=== PATIENT | female | born 1975 | race Caucasian/White ===

== ENCOUNTER → 2016-03-12 | Outpatient (CLI) | payer OTHER ==
[~2016-03-12] MED LIST: ACET-703 PO; CEPH-460 PO; CLEO300C2 PO; FERRTAB2 PO; IBUP-232 PO; IBUP800T23 PO; MACR100C2 PO; NAPR500T PO; OXYC1TAB63 PO; PERI8.6T PO; PREN1CAP20; SIME80CH PO; ZITHTAB PO
== END ==
LOC: HPND 09:54
PROVIDERS: ATTEND Obstetrics & Gynecology Obstetrics
DX: O09.522 Supervision of elderly multigravida, second trimester (principal); O35.1XX0 Maternal care for (suspected) chromosomal abnormality in fetus, not applicable or unspecified; O09.892 Supervision of other high risk pregnancies, second trimester; O09.212 Supervision of pregnancy with history of pre-term labor, second trimester; O99.332 Smoking (tobacco) complicating pregnancy, second trimester; Z3A.31 31 weeks gestation of pregnancy
CPT/HCPCS: 76816

== ENCOUNTER 2016-03-18 09:31 | Emergency (ER) | payer OTHER ==
[~2016-03-18] VITALS: Ht 185.4 cm; Wt 76.0 kg
[~2016-03-18 09:31] MED LIST changes: -ACET-703 PO; -CEPH-460 PO; -CLEO300C2 PO; -FERRTAB2 PO; -IBUP-232 PO; -IBUP800T23 PO; -MACR100C2 PO; -NAPR500T PO; -OXYC1TAB63 PO; -PERI8.6T PO; -SIME80CH PO; -ZITHTAB PO
[2016-03-18 09:32] VITALS: BP 119/66; PULSE 74; RESP 18; TEMP 98.1; O2SAT 97
[2016-03-18] MEDS ORDERED: ONDANSETRON ODT 4 MG TAB PO ONE (10:45)
--- NOTE | 2016-03-18 10:46 | PD ---
HPI Chief Complaint: Cold / Flu Symptoms Time Seen by Provider: 10:37 Travel History International Travel<30 days: No Contact w/Intl Traveler<30days: No Traveled to known affect area: No History of Present Illness HPI 40-year-old female at 31 weeks 6 days gestational age here with complaint of flulike symptoms. Patient states that she has had 3 days of cough, nasal congestion, subjective fevers and chills. Her highest measured temperature was 101.2. Patient has been taking Tylenol with improvement of her symptoms. Some nausea, vomiting. Incidentally her daughter was ill with similar symptoms for 2 days prior to patient. Neither has been tested for influenza. Patient also states that she recently had vaginal intercourse for the first time since becoming . Patient had no pain before or after intercourse, notes after intercourse she did have some bleeding. Initially this was heavy, burgundy in color with occasional clot. Over the course the last several days this has decreased and is now only scant amount of spotting when she wipes after using the restroom. She called her [facility]IST who instructed her to come to the emergency department for both symptoms. PFSH Past Medical History Autoimmune Disease: Yes (LYME DISEASE) Diminished Hearing: No Migraines: Yes Tetanus Vaccination: > 5 Years ?: LMP: 16 : 7 Para: 3 Miscarriage: 3 Past Surgical History Oral Surgery: Yes (WISDOM TEETH REMOVAL) Social History Alcohol Use: No Tobacco Use: Yes (smokes a half pack of cigarettes per day) Substance Use: No Allergies-Medications (Allergen,Severity, Reaction): Coded Allergies: No Known Allergies (Unverified , 03/18/16) Reported Meds & Prescriptions Reported Meds & Active Scripts Active Reported Prenate Mini 18-0.6-0.4-350 mg ( W/O Vit A W/ Fe Carbo) 1 Cap Cap Review of Systems Except as stated in HPI: all other systems reviewed are Neg Physical Exam Narrative GENERAL: Well-appearing female in no acute distress SKIN: Warm and dry. HEAD: Normocephalic. EYES: No scleral icterus. No injection or drainage. ENT: No nasal bleeding or discharge. Mucous membranes pink and moist. Posterior pharynx is clear NECK: Supple CARDIOVASCULAR: Regular rate and rhythm. RESPIRATORY: No accessory muscle use. Clear to auscultation. Breath sounds equal bilaterally. GASTROINTESTINAL: Abdomen soft, non-tender, nondistended. Fundus palpable above the umbilicus MUSCULOSKELETAL: Normal gait NEUROLOGICAL: Awake and alert. Normal speech. PSYCHIATRIC: Appropriate mood and affect; insight and judgment normal. Data Data Last Documented VS Vital Signs Date Time Temp Pulse Resp B/P Pulse Ox O2 Delivery O2 Flow Rate FiO2 03/18/16 09:32 98.1 74 18 119/66 97 Room Air Orders Urinalysis - C+S If Indicated (03/18/16 10:39) Influenzae A/B Antigen (03/18/16 10:39) Ondansetron Odt (Zofran Odt) (03/18/16 10:45) Urine Culture (03/18/16 10:50) Labs Laboratory Tests Test 03/18/16 10:50 Urine Color YELLOW Urine Turbidity CLOUDY Urine pH 6.5 Urine Specific [place] 1.017 Urine Protein TRACE mg/dL Urine Glucose (UA) NEG mg/dL Urine Ketones TRACE mg/dL Urine Occult Blood MOD Urine Nitrite NEG Urine Bilirubin NEG Urine Urobilinogen LESS THAN 2.0 MG/DL Urine Leukocyte Esterase MOD Urine RBC 7 /hpf Urine WBC 11 /hpf Urine Squamous Epithelial 5 /hpf Cells Urine Amorphous Sediment RARE Urine Bacteria FEW /hpf Urine Mucus FEW /lpf Microscopic Urinalysis Comment CULTURE INDICATED MDM Medical Decision Making Medical Screen Exam Complete: Yes Emergency Medical Condition: Yes Medical Record Reviewed: Yes Differential Diagnosis 40-year-old female at 31 weeks 6 days gestational age here with complaint of flulike symptoms, spotting after intercourse. Differential includes viral syndrome, influenza, sinusitis, pneumonia, cervical irritation/trauma from intercourse, and less likely a term labor, abruption, previa given lack of associated pain or heavy persistent bleeding. Narrative Course Influenza was negative. Urinalysis showed leukocyte esterase with white cells and few bacteria. Will await culture will treat with Macrobid. Patient was cleared from an ED perspective and will be sent up to the OB ED for her spotting. Diagnosis Primary Impression: Upper respiratory infection Qualified Code: J06.9 - Viral upper respiratory tract infection Additional Impression: Urinary tract infection affecting Referrals: Primary Care Physician as needed Patient Instructions: General Instructions, Upper Respiratory Infection (ED), Urinary Tract Infection in (ED) Additional Instructions: Antibiotics for urinary tract infection as prescribed. Med/Other Pt SpecificInfo: Prescription(s) given Scripts Nitrofurantoin Monohydrate Macrocrystals (Macrobid)100 Mg [id number] Mg PO BID 7 Days Ref 0 Prov:Melany Miramontes MD 03/18/16 Disposition: 01 DISCHARGE HOME Condition: Stable Melany Miramontes MD Mar 18, 2016 10:46
[2016-03-18 11:15] LABS: BACTERIA, URINE FEW /hpf; BLOOD, URINE MOD (NEG); GLUCOSE,URINE NEG (NEG); KETONE, URINE TRACE mg/dL (NEG); MUCUS URINE FEW /lpf (OCC); NITRITE,URINE NEG (NEG); PH, URINE 6.5 (5.0-8.5); SQUAMOUS EPITHELIAL CELL URINE 5 /hpf (0-5); URINE COLOR YELLOW (YELLW/STRAW)
[2016-03-18 11:17] LABS: COMMENT (UR) CULTURE INDICATED; CULTURE IF INDICATED CULTURE INDICATED
[2016-03-18] MEDS ORDERED: MACR100C2 PO (11:23)
[2016-04-15] MEDS ORDERED: CEPH-460 PO (09:55)
[2016-05-06] MEDS ORDERED: FERRTAB2 PO (10:38)
[2016-05-13] MEDS ORDERED: IBUP800T23 PO (11:01)
== END 2016-03-18 11:35 | disposition home or self-care (01) ==
LOC: NEPD 09:31
DX: O26.893 Other specified pregnancy related conditions, third trimester (principal); J06.9 Acute upper respiratory infection, unspecified; B97.89 Other viral agents as the cause of diseases classified elsewhere; O23.43 Unspecified infection of urinary tract in pregnancy, third trimester; O26.853 Spotting complicating pregnancy, third trimester; R05 Cough; R50.9 Fever, unspecified; R11.2 Nausea with vomiting, unspecified; F17.200 Nicotine dependence, unspecified, uncomplicated; Z86.2 Personal history of diseases of the blood and blood-forming organs and certain disorders involving the immune mechanism; Z3A.31 31 weeks gestation of pregnancy
CPT/HCPCS: 81001; 87086; 87804; 99284

== ENCOUNTER 2016-03-23 11:20 | Emergency (ER) | payer OTHER ==
[~2016-03-23 11:20] MED LIST changes: +MACR100C2 PO
[2016-03-23 11:23] VITALS: BP 111/57; PULSE 80; RESP 24; TEMP 97.8; O2SAT 97
[2016-03-23 11:58] VITALS: TEMP 98.3
[2016-03-23 11:59] VITALS: BP 110/69; PULSE 78; RESP 18
[2016-03-23] MEDS ORDERED: guaiFENesin/DEXTROMETHORPHAN 200 MG/20 MG/10 ML CUP PO ONE (12:00)
--- NOTE | 2016-03-23 12:04 | PD ---
HPI Date Seen: Mar 23, 2016 Time Seen: 11:45 (Tristen Pope MD R2) Travel History International Travel<30 Days: No Contact w/Intl Traveler<30Days: No (Tristen Pope MD R2) History of Present Illness HPI Ms. Esteban is a 40 yo pt of [facility] at 32 4/7 weeks (JAZMIN 05/14) who presents with right-sided chest pain and cough. Patient states that these symptoms have worsened since she was last seen in [place] ED 03/18 (Ms. Esteban was seen by Dr. Miramontes; influenza negative. UA with leuk esterase, WBC, few bacteria; prescribed Macrobid). Patient states that chest pain occurs with coughing; last night she had particularly large cough and since then has had worse right-sided chest pain. Patient states that she felt a popping sensation with this coughing. No exertional component of chest pain; no shortness of breath. No fever/chills. Patient states that she has been taking Mucinex / Tylenol for suspected URI and chest pain. No calf swelling. Patient denies dysuria; she is still taking Macrobid. No vomiting; had nausea this morning. Patient also reports that she is certain for premature rupture of membrane; however, she frequently urinates on herself. No reported US abnormalities; gets q4 weeks since AMA. Review of records: A+ blood, no infectious diseases Para: 3 : 7 (Tristen Pope MD R2) History Past Medical History Narrative Medical Advanced maternal age Tobacco abuse (Tristen Pope MD R2) Obstetric History Obstetric History 3 vaginal deliveries; 1 child at ~34weeks, others full term No reported prior complications (Tristen Pope MD R2) Past Surgical History Narrative Surgical Unspecified knee surgery [place] teeth removal (Tristen Pope MD R2) Family History Family History: Negative (Tristen Pope MD R2) Social History Narrative Social History 5-6 cigarettes/day Not sexually active recently; not involved with prior partner Alcohol Use: No Tobacco Use: Yes Substance Abuse: No (Tristen Pope MD R2) Allergies-Medications (Allergen,Severity, Reaction): Coded Allergies: No Known Allergies (Unverified , 03/23/16) Home Meds Active Scripts Acetaminophen (Tylenol Extra Strength)500 Mg Qcg135 Mg PO Q6HR PRN (PAIN) #20 TAB Ref 0 Prov:Tristen Pope MD R2 03/23/16 Azithromycin (Zithromax Z-Ephraim)250 Mg [id number] Mg PO DIRECTED #1 DSPK Ref 0 500 MG (2 tabs) day 1, then 1 tab days 2-5. Prov:Tristen Pope MD R2 03/23/16 Nitrofurantoin Monohydrate Macrocrystals (Macrobid)100 Mg [id number] Mg PO BID 7 Days Ref 0 Prov:Melany Miramontes MD 03/18/16 Reported Medications W/O Vit A W/ Fe Carbo (Prenate Mini 18-0.6-0.4-350 mg)1 Cap Cap 01/14/16 Review of Systems General / Constitutional: No: Fever Eyes: No: Blurred Vision Cardiovascular: Chest Pain or Discomfort Respiratory: Cough, No: Short of Breath Gastrointestinal: No: Nausea, Abdominal Pain Genitourinary: No: Dysuria Skin: No Rash Psychiatric: No: Anxiety, Depression (Tristen Pope MD R2) Physical Exam Narrative Vital signs: BP 110/69 HR 78 RR 18 T 98.3 GENERAL: Well-nourished, well-developed patient. SKIN: Warm and dry. HEAD: Normocephalic and atraumatic. EYES: No scleral icterus. No injection or drainage. ENT: No nasal drainage noted. Mucous membranes pink. CARDIOVASCULAR: Regular rate and rhythm without murmurs. Normal peripheral perfusion Chest Wall: Pain to palpation of R chest wall at ribs ~5-7 near costochondral junction RESPIRATORY: Normal rate. Congestion to auscultation of R lung field inferiorly ABDOMEN/GI: Abdomen soft, non-tender, bowel sounds normal, no rebound, no guarding Gravid. EXTREMITIES: No calf pain or lower extremity edema NEUROLOGICAL: Awake and alert. Motor and sensory function grossly within normal limits. GENITOURINARY: Uterine Contractions: None FHT's: Category: 1 Baseline: 145 Reactive: Y Variability: Moderate Decels: None (Tristen Pope MD R2) Data Data Orders Vital Signs (Adult) .ON ADMISSION (03/23/16 11:43) ^ Labor Status (03/23/16 11:43) Urinalysis - C+S If Indicated (03/23/16 11:43) ^ Non Stress Test (03/23/16 11:43) ^ Hydration (03/23/16 11:43) Complete Blood Count With Diff (03/23/16 11:43) Basic Metabolic Panel (Bmp) (03/23/16 11:43) Influenzae A/B Antigen (03/23/16 11:43) Chest, Pa & Lat (03/23/16 ) Guaifen-Dm 200-20 Mg/10 Ml Liq (Robituss (03/23/16 12:00) (Tristen Pope MD R2) MDM Medical Record Reviewed: Yes Interpretation(s) Last Impressions Chest X-Ray 03/23/16 0000 Signed Impressions: Service Date/Time: Wednesday, March 23, 2016 12:29 - CONCLUSION: No acute pulmonary infiltrates. Indio Donis MD Narrative Course / MDM 40 yo Assessment: -32 4/7 weeks, advanced maternal age -EFM reassuring -Cat 1 rhythm -Chest pain to palpation and with coughing; suspect MSK and/or pleuritic -URI symptoms; afebrile -Recent UTI; treated with Macrobid Plan: Monitor EFM Will assess for pneumonia/influenza -Influenza negative -CXR negative -CBC- WBC 11.2; Neut 84.1% Will check for UTI -UA reassuring Will check for ROM -PAMG-[address] Lazo Plan Suspect Viral infection vs atypical pneumonia -Will discharge patient home with follow-up with [facility] OPERATOR -Will empirically give Azithromycin for possible atypical pneumonia -Will advise Tylenol ES for pain control -Honey advised for cough control -Patient to return to [facility] OPER[facility] or OB ED if fever or worsening symptoms (Tristen Pope MD R2) Diagnosis Diagnosis: Primary Impression: Upper respiratory infection Additional Impressions: Lower respiratory infection Cough Chest wall muscle strain Disposition: 01 DISCHARGE HOME Condition: Stable Scripts Acetaminophen (Tylenol Extra Strength)500 Mg Tab127 Mg PO Q6HR PRN (PAIN) #20 TAB Ref 0 Prov:Tristen Pope MD R2 03/23/16 Azithromycin (Zithromax Z-Ephraim)250 Mg [id number] Mg PO DIRECTED #1 DSPK Ref 0 500 MG (2 tabs) day 1, then 1 tab days 2-5. Prov:Tristen Pope MD R2 03/23/16 Referrals: [facility] Patient Instructions: General Instructions, Upper Respiratory Infection (DC) Attestation Patient seen and examined with the resident under direct supervision and I agree with the assessment and plan. (Joe Lazo MD) Tristen Pope MD R2 Mar 23, 2016 12:04 Joe Lazo MD Mar 24, 2016 02:14
[2016-03-23 12:40] VITALS: BP 128/64; PULSE 69
[2016-03-23 12:45] VITALS: RESP 18
--- NOTE | 2016-03-23 12:57 | RADRPT ---
EXAM DATE/TIME: 03/23/2016 12:29 [facility] COMPARISON: No previous studies available for comparison. INDICATIONS : Bronchitis. Right side chest pain and cough. MEDICAL HISTORY : . SURGICAL HISTORY : None. ENCOUNTER: Initial ACUITY: 2 days PAIN SCORE: 9/10 LOCATION: Right chest FINDINGS: PA and lateral views of the chest demonstrate the lungs to be symmetrically aerated without evidence of mass, infiltrate or effusion. The cardiomediastinal contours are unremarkable. Osseous structure s are intact. CONCLUSION: No acute pulmonary infiltrates. Indio Donis MD on March 23, 2016 at 12:55 Board Certified Radiologist. This report was verified electronically.
[2016-03-23 13:02] LABS: AUTOMATED NEUTROPHIL # 9.9 TH/MM3 (1.8-7.7); BASOPHIL # 0.1 TH/MM3 (0-0.2); BASOPHIL % 0.5 % (0.0-2.0); EOSINOPHIL # 0.1 TH/MM3 (0-0.4); EOSINOPHIL % 1.1 % (0.0-4.0); HEMATOCRIT 31.3 % (35.0-46.0); HEMO FLAGS DIFF FINAL; LYMPH % 9.5 % (9.0-44.0); LYMPHOCYTE # 1.1 TH/MM3 (1.0-4.8); MEAN CORPUSCULAR HGB CONC 34.5 % (32.0-36.0); MONO % 4.8 % (0.0-8.0); NEUT % 84.1 % (16.0-70.0); PLATELET COUNT 281 TH/MM3 (150-450); RED BLOOD COUNT 3.37 MIL/MM3 (4.00-5.30); RED CELL DISTRIBUTION WIDTH 12.9 % (11.6-17.2); WHITE BLOOD COUNT 11.8 TH/MM3 (4.0-11.0)
[2016-03-23 13:08] LABS: BACTERIA, URINE RARE /hpf; BLOOD, URINE NEG (NEG); GLUCOSE,URINE NEG (NEG); KETONE, URINE 150 mg/dL (NEG); MUCUS URINE FEW /lpf (OCC); NITRITE,URINE NEG (NEG); RENAL EPITHELIAL CELLS <1 /hpf; SQUAMOUS EPITHELIAL CELL URINE <1 /hpf (0-5); URINE COLOR YELLOW (YELLW/STRAW)
[2016-03-23 13:09] LABS: COMMENT (UR) CULT NOT INDICATED; CULTURE IF INDICATED CULT NOT INDICATED
[2016-03-23 13:16] LABS: BICARBONATE 25.2 MEQ/L (21.0-32.0); POTASSIUM 3.5 MEQ/L (3.5-5.1)
[2016-03-23] MEDS ORDERED: ACET-703 PO (13:59)
[2016-03-23] MEDS ORDERED: ZITHTAB PO (13:59)
[2016-04-15] MEDS ORDERED: CEPH-460 PO (09:55)
[2016-05-06] MEDS ORDERED: FERRTAB2 PO (10:38)
[2016-05-13] MEDS ORDERED: IBUP800T23 PO (11:01)
== END 2016-03-23 16:05 | disposition home or self-care (01) ==
LOC: HOBED 11:20
DX: O26.893 Other specified pregnancy related conditions, third trimester (principal); O09.513 Supervision of elderly primigravida, third trimester; J06.9 Acute upper respiratory infection, unspecified; J22 Unspecified acute lower respiratory infection; R07.9 Chest pain, unspecified; Z3A.32 32 weeks gestation of pregnancy
CPT/HCPCS: 36415; 59025; 71020; 80048; 81001; 84112; 85025; 87804

== ENCOUNTER → 2016-04-09 | Outpatient (CLI) | payer OTHER ==
[~2016-04-09] MED LIST changes: +ACET-703 PO; +CEPH-460 PO; +CLEO300C2 PO; +FERRTAB2 PO; +IBUP-232 PO; +IBUP800T23 PO; +NAPR500T PO; +OXYC1TAB63 PO; +PERI8.6T PO; +SIME80CH PO; +ZITHTAB PO
== END ==
LOC: HPND 09:22
PROVIDERS: ATTEND Obstetrics & Gynecology
DX: O09.523 Supervision of elderly multigravida, third trimester (principal); O99.333 Smoking (tobacco) complicating pregnancy, third trimester; O09.33 Supervision of pregnancy with insufficient antenatal care, third trimester; O09.892 Supervision of other high risk pregnancies, second trimester; O09.213 Supervision of pregnancy with history of pre-term labor, third trimester; O40.3XX0 Polyhydramnios, third trimester, not applicable or unspecified; O35.1XX0 Maternal care for (suspected) chromosomal abnormality in fetus, not applicable or unspecified; Z3A.35 35 weeks gestation of pregnancy
CPT/HCPCS: 76816

== ENCOUNTER 2016-04-18 20:03 | Inpatient (IN) | payer OTHER ==
[~2016-04-18] VITALS: Ht 185.4 cm; Wt 80.0 kg
[~2016-04-18 20:03] MED LIST changes: -CLEO300C2 PO; -FERRTAB2 PO; -IBUP-232 PO; -IBUP800T23 PO; -MACR100C2 PO; -NAPR500T PO; -OXYC1TAB63 PO; -PERI8.6T PO; -SIME80CH PO; -ZITHTAB PO
[2016-04-18 20:04] VITALS: BP 146/83; PULSE 88; RESP 16; TEMP 97.8; O2SAT 98
--- NOTE | 2016-04-18 21:57 | PD ---
HPI . left foot infection for 2 weeks/ worsening Chief Complaint: Skin Problem Time Seen by Provider: 21:57 Travel History International Travel<30 days: No Contact w/Intl Traveler<30days: No Traveled to known affect area: No History of Present Illness HPI 40-year-old female with no significant past medical history who was 36 weeks and 2 days here with complaints of left foot cellulitis that started 2 weeks ago. Apparently patient developed a cellulitis after a dog leash cut into her foot. She has since seen her WARD MAID who recently prescribed Keflex this past Thursday. Since that she has been taking Keflex for 4 days and has not noticed any improvement and actually thinks the area is worsening and spreading. She called the ob department and was told to come back to the emergency department. Patient admits to pain in the area of the anterior foot radiating into the ankle. She rates the pain as 8 out of 10. At the time of examination patient denies any fever, chills, chest pain, shortness of breath, abdominal pain, or contractions. She does admit to smoking about 4 cigarettes per day. She is uncertain of her tetanus status. She does not want any medications for pain. PFSH Past Medical History Autoimmune Disease: Yes (LYME DISEASE) Diminished Hearing: No Migraines: Yes Tetanus Vaccination: Unknown Influenza Vaccination: No ?: : 7 Para: 3 Miscarriage: 3 Past Surgical History Oral Surgery: Yes (WISDOM TEETH REMOVAL) Social History Alcohol Use: No Tobacco Use: Yes (4-5 CIG PER DAY) Substance Use: No Allergies-Medications (Allergen,Severity, Reaction): Coded Allergies: No Known Allergies (Unverified , 04/18/16) Reported Meds & Prescriptions Reported Meds & Active Scripts Active Keflex (Cephalexin) 500 Mg Cap 500 Mg PO Q12H Tylenol Extra Strength (Acetaminophen) 500 Mg Tab 500 Mg PO Q6HR PRN Reported Prenate Mini 18-0.6-0.4-350 mg ( W/O Vit A W/ Fe Carbo) 1 Cap Cap Review of Systems General / Constitutional: No: Fever Eyes: No: Visual changes HENT: No: Headaches, Congestion Cardiovascular: No: Chest Pain or Discomfort, Palpitations Respiratory: No: Cough, Shortness of Breath Gastrointestinal: No: Abdominal Pain Genitourinary: No: Dysuria Musculoskeletal: No: Pain Skin: Positive Other (left foot swelling/cellulitis ), No Rash Neurologic: No: Weakness Psychiatric: No: Depression Endocrine: No: Polydipsia Hematologic/Lymphatic: No: Easy Bruising Physical Exam Narrative GENERAL: AAO x 3, no acute distress, Well-nourished, well-developed patient. SKIN: Warm and dry. No visible rashes or bruising. Left foot + erythema and pedal edema, on the anterior foot proximal to toes extending distal to ankle, warm to touch HEAD: Normocephalic and atraumatic. EYES: No scleral icterus. No injection or drainage. ENT: No nasal drainage noted. Mucous membranes pink. Airway patent. NECK: Supple, trachea midline. No JVD. CARDIOVASCULAR: Regular rate and rhythm without murmurs, gallops, or rubs. RESPIRATORY: Breath sounds equal bilaterally. No accessory muscle use. No rhonchi or rales. GASTROINTESTINAL: Abdomen soft, non-tender, nondistended. EXTREMITIES: No cyanosis or edema. Neurovascularly intact. Sensation is normal. Strength is normal bilaterally in the lower extremities. BACK: Nontender without obvious deformity. No CVA tenderness. PSYCH: AAO x 3, normal affect. Data Data Last Documented VS Vital Signs Date Time Temp Pulse Resp B/P Pulse Ox O2 Delivery O2 Flow Rate FiO2 04/18/16 22:00 75 18 135/76 98 Room Air 04/18/16 20:04 97.8 Orders Basic Metabolic Panel (Bmp) (04/18/16 22:03) Complete Blood Count With Diff (04/18/16 22:03) Lactic Acid Sepsis Protocol (04/18/16 22:03) Blood Culture (04/18/16 22:03) Blood Glucose (04/18/16 22:03) Ecg Monitoring (04/18/16 22:03) Iv Access Insert/Monitor (04/18/16 22:03) Oximetry (04/18/16 22:03) Sodium Chloride 0.9% Flush (Ns Flush) (04/18/16 22:15) Labs Laboratory Tests Test 04/18/16 22:10 White Blood Count 15.9 TH/MM3 Red Blood Count 3.36 MIL/MM3 Hemoglobin 10.6 GM/DL Hematocrit 30.4 % Mean Corpuscular Volume 90.5 FL Mean Corpuscular Hemoglobin 31.6 PG Mean Corpuscular Hemoglobin 34.9 % Concent Red Cell Distribution Width 12.5 % Platelet Count 291 TH/MM3 Mean Platelet Volume 8.1 FL Neutrophils (%) (Auto) 78.8 % Lymphocytes (%) (Auto) 13.9 % Monocytes (%) (Auto) 5.7 % Eosinophils (%) (Auto) 1.3 % Basophils (%) (Auto) 0.3 % Neutrophils # (Auto) 12.5 TH/MM3 Lymphocytes # (Auto) 2.2 TH/MM3 Monocytes # (Auto) 0.9 TH/MM3 Eosinophils # (Auto) 0.2 TH/MM3 Basophils # (Auto) 0.1 TH/MM3 CBC Comment DIFF FINAL Differential Comment Sodium Level 138 MEQ/L Potassium Level 3.7 MEQ/L Chloride Level 104 MEQ/L Carbon Dioxide Level 22.4 MEQ/L Anion Gap 12 MEQ/L Blood Urea Nitrogen 13 MG/DL Creatinine 0.62 MG/DL Estimat Glomerular Filtration 106 ML/MIN Rate Random Glucose 84 MG/DL Lactic Acid Level 0.8 mmol/L Calcium Level 8.5 MG/DL MDM Medical Decision Making Medical Screen Exam Complete: Yes Emergency Medical Condition: Yes Medical Record Reviewed: Yes Differential Diagnosis worsening foot cellulitis, less likely sepsis, less likely foot fracture, less likely DVT Narrative Course 40-year-old female with no significant past medical history who was 36 weeks and 2 days here with complaints of left foot cellulitis that started 2 weeks ago. Apparently patient developed a cellulitis after a dog leash cut into her foot. She has since seen her WARD MAID who recently prescribed Keflex this past Thursday. Since that she has been taking Keflex for 4 days and has not noticed any improvement and actually thinks the area is worsening and spreading. She called the ob department and was told to come back to the emergency department. Patient admits to pain in the area of the anterior foot radiating into the ankle. She rates the pain as 8 out of 10. At the time of examination patient denies any fever, chills, chest pain, shortness of breath, abdominal pain, or contractions. She does admit to smoking about 4 cigarettes per day. She is uncertain of her tetanus status. She does not want any medications for pain. Patient seen and examined. I've ordered labs to see if she has any signs of sepsis. Pending labs will make a decision as to what we will do. She will definitely need a change of antibiotic. I signed off the case to Dr. Bauman at 23:14. She will determine disposition and condition and further course of treatment. Diagnosis Primary Impression: Cellulitis of foot without toes Jacquelyn Luciano Apr 18, 2016 21:57 Jacquelyn Luciano Apr 18, 2016 21:57
[2016-04-18 22:00] VITALS: BP 135/76; PULSE 75; RESP 18; O2SAT 98
[2016-04-18] MEDS ORDERED: SODIUM CHLORIDE 0.9% FLUSH 5 ML FLUSH IVF PRN (22:15)
[2016-04-18 22:28] LABS: AUTOMATED NEUTROPHIL # 12.5 TH/MM3 (1.8-7.7); BASOPHIL # 0.1 TH/MM3 (0-0.2); BASOPHIL % 0.3 % (0.0-2.0); EOSINOPHIL # 0.2 TH/MM3 (0-0.4); EOSINOPHIL % 1.3 % (0.0-4.0); HEMATOCRIT 30.4 % (35.0-46.0); HEMO FLAGS DIFF FINAL; LYMPH % 13.9 % (9.0-44.0); LYMPHOCYTE # 2.2 TH/MM3 (1.0-4.8); MEAN CELL VOLUME 90.5 FL (80.0-100.0); MEAN CORPUSCULAR HEMOGLOBIN 31.6 PG (27.0-34.0); MEAN CORPUSCULAR HGB CONC 34.9 % (32.0-36.0); MONO % 5.7 % (0.0-8.0); NEUT % 78.8 % (16.0-70.0); PLATELET COUNT 291 TH/MM3 (150-450); RED BLOOD COUNT 3.36 MIL/MM3 (4.00-5.30); RED CELL DISTRIBUTION WIDTH 12.5 % (11.6-17.2); WHITE BLOOD COUNT 15.9 TH/MM3 (4.0-11.0)
[2016-04-18 22:46] LABS: BICARBONATE 22.4 MEQ/L (21.0-32.0); POTASSIUM 3.7 MEQ/L (3.5-5.1)
[2016-04-18 23:10] VITALS: BP 125/71; PULSE 74; RESP 18; O2SAT 99
[2016-04-19] VITALS (9 sets, daily range): BP systolic 99–125; BP diastolic 56–74; PULSE 64–88; RESP 16–20; TEMP 97.9–98.7; O2SAT 98
[2016-04-19] MEDS ORDERED: CLINDAMYCIN INJ 600 MG in SODIUM CHLORIDE 0.9% INJ 100 ML IV ONE (00:30)
--- NOTE | 2016-04-19 00:39 | PD ---
Physical Exam Date Seen by Provider: Apr 19, 2016 Time Seen by Provider: 23:34 Narrative Accepted in transfer of care from Jacquelyn Luciano PA-C GENERAL: Well-developed well-nourished female in no acute distress no respiratory distress SKIN: Warm and dry. HEAD: Normocephalic. EYES: No scleral icterus. No injection or drainage. NECK: Supple, trachea midline. No JVD or lymphadenopathy. CARDIOVASCULAR: Regular rate and rhythm without murmurs, gallops, or rubs. RESPIRATORY: Breath sounds equal bilaterally. No accessory muscle use. GASTROINTESTINAL: Abdomen soft, non-tender, nondistended, fundal height 5 finger breadths from the diaphragm. MUSCULOSKELETAL: No cyanosis, or edema. Attention left foot area of erythema induration tenderness and increased warmth with central area of abrasion with scab in place dorsalis pedis pulses 2+ to palpation and range of motion in ankle and digits intact capillary refill brisk and less than 2 seconds no ascending erythema or groin lymphadenopathy BACK: Nontender without obvious deformity. No CVA tenderness. Data Data Last Documented VS Vital Signs Date Time Temp Pulse Resp B/P Pulse Ox O2 Delivery O2 Flow Rate FiO2 04/19/16 00:19 73 16 125/74 98 04/18/16 23:10 Room Air 04/18/16 20:04 97.8 Orders Basic Metabolic Panel (Bmp) (04/18/16 22:03) Complete Blood Count With Diff (04/18/16 22:03) Lactic Acid Sepsis Protocol (04/18/16 22:03) Blood Culture (04/18/16 22:03) Blood Glucose (04/18/16 22:03) Ecg Monitoring (04/18/16 22:03) Iv Access Insert/Monitor (04/18/16 22:03) Oximetry (04/18/16 22:03) Sodium Chloride 0.9% Flush (Ns Flush) (04/18/16 22:15) Clindamycin Inj (Cleocin Inj) (04/19/16 00:30) Admit Order (Ed Use Only) (04/19/16 ) ^ Saline Lock (04/19/16 00:32) Resp Oxygen Freeman C Titrat 1-4 L (04/19/16 ) ^ Notify Dr: Other (04/19/16 00:32) Sodium Chloride 0.9% Flush (Ns Flush) (04/19/16 09:00) Sodium Chloride 0.9% Flush (Ns Flush) (04/19/16 00:45) Labs Laboratory Tests Test 04/18/16 22:10 White Blood Count 15.9 TH/MM3 Red Blood Count 3.36 MIL/MM3 Hemoglobin 10.6 GM/DL Hematocrit 30.4 % Mean Corpuscular Volume 90.5 FL Mean Corpuscular Hemoglobin 31.6 PG Mean Corpuscular Hemoglobin 34.9 % Concent Red Cell Distribution Width 12.5 % Platelet Count 291 TH/MM3 Mean Platelet Volume 8.1 FL Neutrophils (%) (Auto) 78.8 % Lymphocytes (%) (Auto) 13.9 % Monocytes (%) (Auto) 5.7 % Eosinophils (%) (Auto) 1.3 % Basophils (%) (Auto) 0.3 % Neutrophils # (Auto) 12.5 TH/MM3 Lymphocytes # (Auto) 2.2 TH/MM3 Monocytes # (Auto) 0.9 TH/MM3 Eosinophils # (Auto) 0.2 TH/MM3 Basophils # (Auto) 0.1 TH/MM3 CBC Comment DIFF FINAL Differential Comment Sodium Level 138 MEQ/L Potassium Level 3.7 MEQ/L Chloride Level 104 MEQ/L Carbon Dioxide Level 22.4 MEQ/L Anion Gap 12 MEQ/L Blood Urea Nitrogen 13 MG/DL Creatinine 0.62 MG/DL Estimat Glomerular Filtration 106 ML/MIN Rate Random Glucose 84 MG/DL Lactic Acid Level 0.8 mmol/L Calcium Level 8.5 MG/DL [facility] Medical Record Reviewed: Yes Supervised Visit with MARCUS: Yes Differential Diagnosis Cellulitis, contact dermatitis, third trimester Narrative Course heart tones 136; advanced maternal age female 36 weeks 2 days presents with worsening cellulitis of the left foot after injury sustained by a dog leash proximate 2 weeks ago. Patient has been on oral antibiotics without improvement. No ascending erythema or left groin lymphadenopathy. No fever or chills. Patient does show evidence of leukocytosis lactic acid however is not elevated 0.8 chemistries are within normal range. Patient's case has been discussed with on-call COMMUNICATIONS SYSTEMS ENGINEER for the OB ED Dr. Sinclair will accept patient for admission. Physician Communication Physician Communication discussed with Dr Pool--will accept for admission for iv antibiotics Diagnosis Primary Impression: Cellulitis of foot without toes Additional Impression: Qualified Code: Z3A.36 - 36 weeks gestation of Admitting Information Admitting Physician Requests: Admit Ansley Bauman MD Apr 19, 2016 00:38
[2016-04-19] MEDS ORDERED: SODIUM CHLORIDE 0.9% FLUSH 5 ML FLUSH IVF PRN (00:45)
--- NOTE | 2016-04-19 01:28 | HHI.HP ---
HPI Chief Complaint foot pain (Rigo Grover MD R1) Travel History International Travel<30 Days: No Contact w/Intl Traveler<30Days: No Known Affected Area: No (Rigo Grover MD R1) History of Present Illness HPI Patient is a 40-year-old at 36 weeks and 2 days who is presenting with a left foot cellulitis. She reports that she first injured her left foot about 2 weeks ago when she had the dog leash wrap around her foot and cut into it. She was evaluated at that time and was noted to be normal. 3-4 days after the injury, she noticed some warmth, redness, tenderness of the left foot. She was seen and evaluated on Thursday of this week, and was prescribed Keflex 500 mg by mouth q6h. she was told that it should get better after a few days. Thursday, it was no better, looked the same. She tried to call her OB, but they had already closed. She called L&D and asked if she should wait the weekend. They asked her if there was discoloration, warmth, pain, and she had all 3 of these symptoms, so she was instructed to present to the emergency department. Patient endorses movement, denies any leakage of fluid, contractions, vaginal bleeding, vaginal discharge, vaginal itching. She denies any dysuria. She had a nonstress test on Thursday which was normal per patient report except for baby lying transversely. She denies any fever or chills. She endorses some nausea and nonbilious nonbloody, yellow vomiting recently, but none at the moment. She reports that she has not had any nausea or vomiting since her first trimester. She endorses feeling more tired recently. She denied any chest pain, shortness of breath, abdominal pain. She did endorse some [place] contractions for the past month. 3 weeks ago, she was diagnosed with a URI. She was coughing frequently, and reports hurting under her right ribs. She denies any coughing since then. Para: 3 : 7 Miscarriage: 3 (Rigo Grover MD R1) History Past Medical History Narrative Medical Patient reports a history of Lyme disease, which was treated with antibiotics. ( Rigo Grover MD R1) Obstetric History Obstetric History Patient reports that she had 1 son born 6 weeks early. (Rigo Grover MD R1) Past Surgical History Narrative Surgical BL arthroscopic knee surgery at 14 yo. wisdom teeth extracted (Rigo Grover MD R1) Family History Narrative Family History No family history of problems with infections or problems in . (Rigo Grover MD R1) Social History Narrative Social History Patient lives with her 16-year-old daughter and 94-year-old grandmother, who she helps to take care of. Alcohol Use: No Tobacco Use: Yes (4-5 cig per day) Substance Abuse: No (Rigo Grover MD R1) Allergies-Medications (Allergen,Severity, Reaction): Coded Allergies: No Known Allergies (Unverified , 04/18/16) Home Meds Active Scripts Cephalexin (Keflex)500 Mg [id number] Mg PO Q12H #30 CAP Ref 0 Prov:Nickie Aranda CNM [employer] 04/15/16 Acetaminophen (Tylenol Extra Strength)500 Mg [id number] Mg PO Q6HR PRN (PAIN) #20 TAB Ref 0 Prov:Tirsten Pope MD R2 03/23/16 Reported Medications W/O Vit A W/ Fe Carbo (Prenate Mini 18-0.6-0.4-350 mg)1 Cap Cap 01/14/16 Narrative Medication Reported Meds & Active Scripts Active Keflex (Cephalexin) 500 Mg Cap 500 Mg PO Q12H Tylenol Extra Strength (Acetaminophen) 500 Mg Tab 500 Mg PO Q6HR PRN Reported Prenate Mini 18-0.6-0.4-350 mg ( W/O Vit A W/ Fe Carbo) 1 Cap Cap ( Rigo Grover MD R1) Review of Systems General / Constitutional: No: Fever, Chills HENT: No: Headaches Cardiovascular: No: Chest Pain or Discomfort Respiratory: No: Cough, Short of Breath Gastrointestinal: Nausea, Vomiting, No: Diarrhea, Abdominal Pain Genitourinary: No: Dysuria Musculoskeletal: No: Edema Skin: No Rash, No Itching Neurologic: No: Headache Psychiatric: No: Anxiety, Depression (Rigo Grover MD R1) Physical Exam Vital Signs Date Time Temp Pulse Resp B/P Pulse Ox O2 Delivery O2 Flow Rate FiO2 04/19/16 01:05 76 18 114/74 98 04/19/16 00:19 73 16 125/74 98 04/18/16 22:00 75 18 135/76 98 Room Air 04/18/16 20:04 97.8 88 16 146/83 98 Narrative GENERAL: Well-nourished, well-developed patient lying in bed in no acute distress. SKIN: Warm and dry. 11cm by 11cm area of erythema on the dorsal aspect of her left foot, which is mildly warm and moderately tender. No areas of fluctuance noted. No edema noted. There is in 8 cm by 0.5 cm well-healing scab at the center of the area of erythema. Good capillary refill distal to this area of erythema. HEAD: Normocephalic and atraumatic. EYES: No scleral icterus. No injection or drainage. ENT: No nasal drainage noted. Mucous membranes pink. Airway patent. NECK: Supple, trachea midline. No JVD. CARDIOVASCULAR: Regular rate and rhythm without murmurs, gallops, or rubs. 2+ dorsalis pedis and posterior tibial pulses. Good capillary refill of toes. RESPIRATORY: Breath sounds equal bilaterally. No accessory muscle use. ABDOMEN/GI: Abdomen soft, non-tender, bowel sounds present, no rebound, no guarding. Gravid to 36 weeks size. By palpation, baby's back is facing the patient's right side and head is down in vertex position. EXTREMITIES: No cyanosis or edema. BACK: Nontender without obvious deformity. No CVA tenderness. NEUROLOGICAL: Awake and alert. Motor and sensory grossly within normal limits, notably at distal left foot. Normal speech. (Rigo Grover MD R1) Data Data Vital Signs Reviewed: Yes Orders Basic Metabolic Panel (Bmp) (04/18/16 22:03) Complete Blood Count With Diff (04/18/16 22:03) Lactic Acid Sepsis Protocol (04/18/16 22:03) Blood Culture (04/18/16 22:03) Blood Glucose (04/18/16 22:03) Ecg Monitoring (04/18/16 22:03) Iv Access Insert/Monitor (04/18/16 22:03) Oximetry (04/18/16 22:03) Sodium Chloride 0.9% Flush (Ns Flush) (04/18/16 22:15) Clindamycin Inj (Cleocin Inj) (04/19/16 00:30) Admit Order (Ed Use Only) (04/19/16 ) ^ Saline Lock (04/19/16 00:32) Resp Oxygen Freeman C Titrat 1-4 L (04/19/16 ) ^ Notify Dr: Other (04/19/16 00:32) Sodium Chloride 0.9% Flush (Ns Flush) (04/19/16 09:00) Sodium Chloride 0.9% Flush (Ns Flush) (04/19/16 00:45) Labs Laboratory Tests Test 04/18/16 22:10 White Blood Count 15.9 Red Blood Count 3.36 Hemoglobin 10.6 Hematocrit 30.4 Mean Corpuscular Volume 90.5 Mean Corpuscular Hemoglobin 31.6 Mean Corpuscular Hemoglobin 34.9 Concent Red Cell Distribution Width 12.5 Platelet Count 291 Mean Platelet Volume 8.1 Neutrophils (%) (Auto) 78.8 Lymphocytes (%) (Auto) 13.9 Monocytes (%) (Auto) 5.7 Eosinophils (%) (Auto) 1.3 Basophils (%) (Auto) 0.3 Neutrophils # (Auto) 12.5 Lymphocytes # (Auto) 2.2 Monocytes # (Auto) 0.9 Eosinophils # (Auto) 0.2 Basophils # (Auto) 0.1 CBC Comment DIFF FINAL Differential Comment Sodium Level 138 Potassium Level 3.7 Chloride Level 104 Carbon Dioxide Level 22.4 Anion Gap 12 Blood Urea Nitrogen 13 Creatinine 0.62 Estimat Glomerular Filtration 106 Rate Random Glucose 84 Lactic Acid Level 0.8 Calcium Level 8.5 Date/Time Procedure Status Source Growth 04/18/16 22:15 Aerobic Blood Culture Received Blood Peripheral Pending 04/18/16 22:15 Anaerobic Blood Culture Received Blood Peripheral Pending (Rigo Grover MD R1) Assessment/Plan Problem List: (1) Cellulitis of foot without toes Plan: Patient presents with left foot cellulitis after failing to show improvement with outpatient treatment with Keflex by mouth. WBC of 15.9 with neutrophilia. No fever, fluctuance, joint involvement. Admit to inpatient for IV antibiotics Clindamycin 600 mg IV every 8 hours Consider imaging if no clinical improvement BMP, CBC every morning Tylenol as needed for pain or fever Zofran for nausea Blood culture Monitor vital signs Administer oxygen as needed Encourage by mouth hydration (2) Plan: Patient is a 40-year-old at 36 weeks and 2 days who has a history of premature labor. Monitor vital signs Encourage hydration by mouth Monitor labor status with tocometry Monitor heart rate with nonstress test every shift UA (3) Nutrition, metabolism, and development symptoms Plan: Fluids: None currently indicated as patient is hydrating well by mouth Electrolytes: Continue to monitor and replete as necessary Nutrition: Regular basic diet GI prophylaxis: Not currently indicated DVT prophylaxis: Not currently indicated because patient is ambulating well Assessment and Plan Patient is a 40-year-old at 36 weeks and 2 days who is presenting with a left foot cellulitis after failing to show improvement with outpatient treatment with Keflex, admitted for IV antibiotics and monitoring of her . Discharge Planning Patient will likely be discharged home when stable and improving on oral antibiotics. (Rigo Grover MD R1) Attestation Agree with above admission management plans. NST on admission is reactive and reassuring. (Genia Pool MD) iRgo Grover MD R1 Apr 19, 2016 01:28 Genia Pool MD Apr 19, 2016 04:34
[2016-04-19] MEDS ORDERED: ACETAMINOPHEN 325 MG TAB PO PRN (02:00)
[2016-04-19] MEDS ORDERED: NALOXONE HCL 0.4 MG/ML AMP IV PRN (02:00)
[2016-04-19] MEDS ORDERED: ONDANSETRON HCL 4 MG/2 ML VIAL IVP PRN (02:00)
[2016-04-19] MEDS ORDERED: SODIUM CHLORIDE 0.9% FLUSH 5 ML FLUSH FLUSH PRN (02:00)
[2016-04-19] MEDS: CLINDAMYCIN INJ 600 MG in SODIUM CHLORIDE 0.9% INJ 100 ML IV SCH ×2 (08:47→17:11)
--- NOTE | 2016-04-19 08:53 | PD.OB.ANTE ---
Subjective Interval History 40 year old at 36 weeks and 3 days presented with left foot cellulitis after a foot injury. This morning the area of erythema is slightly less than yesterday. No drainage reported. The area is delineated by a surgical pen marking. She reports no fevers overnight, and reports that she feels fine. She reports a good appetite. She has mild leukocytosis but is afebrile. No drainage from the area. No nausea or vomiting. She failed Keflex for outpatient treatment. (Rigo Garrido MD R2) Objective Vital Signs Vital Signs Date Time Temp Pulse Resp B/P Pulse Ox O2 Delivery O2 Flow Rate FiO2 04/19/16 03:00 98.7 18 04/19/16 01:56 64 110/72 04/19/16 01:05 76 18 114/74 98 04/19/16 00:19 73 16 125/74 98 04/18/16 23:10 74 18 125/71 99 Room Air 04/18/16 22:00 75 18 135/76 98 Room Air 04/18/16 20:04 97.8 88 16 146/83 98 Lab & Micro Results Test 04/18/16 22:10 White Blood Count 15.9 TH/MM3 Red Blood Count 3.36 MIL/MM3 Hemoglobin 10.6 GM/DL Hematocrit 30.4 % Mean Corpuscular Volume 90.5 FL Mean Corpuscular Hemoglobin 31.6 PG Mean Corpuscular Hemoglobin 34.9 % Concent Red Cell Distribution Width 12.5 % Platelet Count 291 TH/MM3 Mean Platelet Volume 8.1 FL Neutrophils (%) (Auto) 78.8 % Lymphocytes (%) (Auto) 13.9 % Monocytes (%) (Auto) 5.7 % Eosinophils (%) (Auto) 1.3 % Basophils (%) (Auto) 0.3 % Neutrophils # (Auto) 12.5 TH/MM3 Lymphocytes # (Auto) 2.2 TH/MM3 Monocytes # (Auto) 0.9 TH/MM3 Eosinophils # (Auto) 0.2 TH/MM3 Basophils # (Auto) 0.1 TH/MM3 CBC Comment DIFF FINAL Differential Comment Sodium Level 138 MEQ/L Potassium Level 3.7 MEQ/L Chloride Level 104 MEQ/L Carbon Dioxide Level 22.4 MEQ/L Anion Gap 12 MEQ/L Blood Urea Nitrogen 13 MG/DL Creatinine 0.62 MG/DL Estimat Glomerular Filtration 106 ML/MIN Rate Random Glucose 84 MG/DL Lactic Acid Level 0.8 mmol/L Calcium Level 8.5 MG/DL Date/Time Procedure Status Source Growth 04/18/16 22:15 Aerobic Blood Culture Received Blood Peripheral Pending 04/18/16 22:15 Anaerobic Blood Culture Received Blood Peripheral Pending Physical Exam GENERAL: No distress SKIN: Warm and dry. 11cm by 11cm area of erythema on the dorsal aspect of her left foot, slightly decreased from yesterday, which is mildly warm and moderately tender. No areas of fluctuance noted. No edema noted. There is in 8 cm by 0.5 cm well-healing scab at the center of the area of erythema. Good capillary refill distal to this area of erythema. HEENT: Normocephalic, moist mucous membranes NECK: Supple, trachea midline. No JVD. CARDIOVASCULAR: Regular rate and rhythm without murmurs, gallops, or rubs. 2+ dorsalis pedis and posterior tibial pulses. Good capillary refill of toes. RESPIRATORY: CTAB ABDOMEN/GI: Abdomen soft, non-tender, bowel sounds present, no rebound, no guarding. Gravid to 36 weeks size. By palpation, baby's back is facing the patient's right side and head is down in vertex position. ABDOMEN/GI: Abdomen soft, non-tender. Gravid to 36 weeks Fundus: [-] GENITOURINARY: Uterine Contractions: irregular FHT's: Category: 1 Baseline: 130's Reactive: yes Variability: moderate Decels: none EXTREMITIES: No cyanosis or edema. BACK: Nontender without obvious deformity. No CVA tenderness. NEUROLOGICAL: Awake and alert. (Rigo Garrido MD R2) Assessment and Plan Problem List: (1) Cellulitis of foot without toes Status: Acute Assessment & Plan: Patient presented with left foot cellulitis after failing to show improvement with outpatient treatment with Keflex by mouth. WBC of 15.9 with neutrophilia. No fever, fluctuance, joint involvement. Clindamycin 600 mg IV every 8 hours, showed mild improvement after first dose. Site marked with surgical pen. Tylenol as needed for pain or fever Blood culture pending Monitor vital signs Administer oxygen as needed Encourage by mouth hydration (2) Status: Acute Assessment & Plan: Patient is a 40-year-old at 36 weeks and 2 days who has a history of premature labor. Non-stress test every shift (3) Nutrition, metabolism, and development symptoms Status: Acute Assessment & Plan: Fluids: None currently indicated as patient is hydrating well by mouth Electrolytes: Continue to monitor and replete as necessary Nutrition: Regular basic diet GI prophylaxis: Not currently indicated DVT prophylaxis: Not currently indicated Discussed with Dr. Pool (Rigo Garrido MD R2) Collaborating MD Comments Patient examined, afebrile 36-37 weeks gestation Left foot cellulitis, markedly improved from 2 doses of IV antibiotics Pneumatic compression devices Attestation Agree with management (Genia Pool MD) Rigo Garrido MD R2 Apr 19, 2016 08:53 Genia Pool MD Apr 19, 2016 09:30
[2016-04-19] MEDS ORDERED: SODIUM CHLORIDE 0.9% FLUSH 5 ML FLUSH FLUSH SCH (09:00)
[2016-04-19] MEDS ORDERED: SODIUM CHLORIDE 0.9% FLUSH 5 ML FLUSH IVF SCH (09:00)
[2016-04-19] MEDS: SODIUM CHLORIDE 0.9% FLUSH 5 ML FLUSH IV PRN ×2 (10:02→17:16)
[2016-04-19 17:15] LABS: AUTOMATED NEUTROPHIL # 10.4 TH/MM3 (1.8-7.7); BASOPHIL % 0.2 % (0.0-2.0); EOSINOPHIL # 0.2 TH/MM3 (0-0.4); EOSINOPHIL % 1.6 % (0.0-4.0); HEMATOCRIT 30.2 % (35.0-46.0); HEMO FLAGS DIFF FINAL; LYMPH % 14.6 % (9.0-44.0); LYMPHOCYTE # 1.9 TH/MM3 (1.0-4.8); MEAN CELL VOLUME 91.6 FL (80.0-100.0); MEAN CORPUSCULAR HEMOGLOBIN 30.8 PG (27.0-34.0); MEAN CORPUSCULAR HGB CONC 33.6 % (32.0-36.0); MONO % 4.6 % (0.0-8.0); PLATELET COUNT 285 TH/MM3 (150-450); WHITE BLOOD COUNT 13.2 TH/MM3 (4.0-11.0)
[2016-04-19] MEDS: SODIUM CHLORIDE 0.9% FLUSH 5 ML FLUSH IV SCH ×2 (17:15→21:00)
[2016-04-19] MEDS ORDERED: LACTATED RINGER'S 1000 ML INJ 500 ML IV ONE (20:12)
--- NOTE | 2016-04-19 20:12 | PD.OB.ANTE ---
Subjective Diagnosis: (1) Cellulitis of foot without toes Diagnosis: Principal (2) Diagnosis: Secondary (3) Nutrition, metabolism, and development symptoms Antepartum ROS: Reports: Contractions (patient reports mild but persistent contractions) Objective Vital Signs Vital Signs Date Time Temp Pulse Resp B/P Pulse Ox O2 Delivery O2 Flow Rate FiO2 04/19/16 17:25 98.0 04/19/16 17:25 20 04/19/16 17:25 69 119/57 04/19/16 12:07 98.1 75 20 04/19/16 12:06 113/67 04/19/16 08:57 75 99/56 04/19/16 08:57 97.9 04/19/16 08:57 18 04/19/16 03:00 98.7 18 04/19/16 01:56 64 110/72 04/19/16 01:05 76 18 114/74 98 04/19/16 00:19 73 16 125/74 98 04/18/16 23:10 74 18 125/71 99 Room Air 04/18/16 22:00 75 18 135/76 98 Room Air 04/18/16 20:04 97.8 88 16 146/83 98 Lab & Micro Results Test 04/18/16 04/19/16 22:10 16:27 White Blood Count 15.9 TH/MM3 13.2 TH/MM3 Red Blood Count 3.36 MIL/MM3 3.30 MIL/MM3 Hemoglobin 10.6 GM/DL 10.2 GM/DL Hematocrit 30.4 % 30.2 % Mean Corpuscular Volume 90.5 FL 91.6 FL Mean Corpuscular Hemoglobin 31.6 PG 30.8 PG Mean Corpuscular Hemoglobin 34.9 % 33.6 % Concent Red Cell Distribution Width 12.5 % 13.0 % Platelet Count 291 TH/MM3 285 TH/MM3 Mean Platelet Volume 8.1 FL 8.4 FL Neutrophils (%) (Auto) 78.8 % 79.0 % Lymphocytes (%) (Auto) 13.9 % 14.6 % Monocytes (%) (Auto) 5.7 % 4.6 % Eosinophils (%) (Auto) 1.3 % 1.6 % Basophils (%) (Auto) 0.3 % 0.2 % Neutrophils # (Auto) 12.5 TH/MM3 10.4 TH/MM3 Lymphocytes # (Auto) 2.2 TH/MM3 1.9 TH/MM3 Monocytes # (Auto) 0.9 TH/MM3 0.6 TH/MM3 Eosinophils # (Auto) 0.2 TH/MM3 0.2 TH/MM3 Basophils # (Auto) 0.1 TH/MM3 0.0 TH/MM3 CBC Comment DIFF FINAL DIFF FINAL Differential Comment Sodium Level 138 MEQ/L Potassium Level 3.7 MEQ/L Chloride Level 104 MEQ/L Carbon Dioxide Level 22.4 MEQ/L Anion Gap 12 MEQ/L Blood Urea Nitrogen 13 MG/DL Creatinine 0.62 MG/DL Estimat Glomerular Filtration 106 ML/MIN Rate Random Glucose 84 MG/DL Lactic Acid Level 0.8 mmol/L Calcium Level 8.5 MG/DL Date/Time Procedure Status Source Growth 04/18/16 22:15 Aerobic Blood Culture - Preliminary Resulted Blood Peripheral NO GROWTH IN 1 DAY 04/18/16 22:15 Anaerobic Blood Culture - Preliminary Resulted Blood Peripheral NO GROWTH IN 1 DAY Physical Exam GENERAL: Well-nourished, well-developed patient. ABDOMEN/GI: Abdomen soft, non-tender. Fundus: [-] GENITOURINARY: External Genitalia: intact and normal in appearance Cervix: [-] Dilatation: [Closed-] Effacement: [80-] Station: [-2-] Presentation: [Vertex-] Membranes: [-] Uterine Contractions: [-Irregular every 2-4] FHT's: Category: [1-] Baseline: [-] Reactive: [-] Variability: [-] Decels: [-] EXTREMITIES: No cyanosis or edema, non-tender, without signs of DVT. Assessment and Plan Problem List: (1) Cellulitis of foot without toes Status: Acute Assessment & Plan: Patient presented with left foot cellulitis after failing to show improvement with outpatient treatment with Keflex by mouth. WBC of 15.9 with neutrophilia. No fever, fluctuance, joint involvement. Clindamycin 600 mg IV every 8 hours, showed mild improvement after first dose. Site marked with surgical pen. Tylenol as needed for pain or fever Blood culture pending Monitor vital signs Administer oxygen as needed Encourage by mouth hydration (2) Status: Acute Assessment & Plan: Patient is a 40-year-old at 36 weeks and 2 days who has a history of premature labor. Non-stress test every shift (3) Nutrition, metabolism, and development symptoms Status: Acute Assessment & Plan: Fluids: 500cc NS bolus Assessment: Mild uterine contractions without cervical dilation, continued improvement of cellulitis in her foot Plan: IV fluid bolus, observation for labor Esdras Diaz MD Apr 19, 2016 20:12
[2016-04-20 01:00] VITALS: RESP 18
[2016-04-20] MEDS: CLINDAMYCIN INJ 600 MG in SODIUM CHLORIDE 0.9% INJ 100 ML IV SCH ×2 (01:00→08:47)
[2016-04-20 03:00] VITALS: RESP 18
[2016-04-20 06:37] LABS: BICARBONATE 24.1 MEQ/L (21.0-32.0); POTASSIUM 3.7 MEQ/L (3.5-5.1)
[2016-04-20 06:58] LABS: AUTOMATED NEUTROPHIL # 8.2 TH/MM3 (1.8-7.7); BASOPHIL # 0.1 TH/MM3 (0-0.2); BASOPHIL % 0.5 % (0.0-2.0); EOSINOPHIL # 0.2 TH/MM3 (0-0.4); EOSINOPHIL % 1.6 % (0.0-4.0); HEMATOCRIT 26.3 % (35.0-46.0); LYMPH % 16.2 % (9.0-44.0); LYMPHOCYTE # 1.7 TH/MM3 (1.0-4.8); MEAN CORPUSCULAR HEMOGLOBIN 31.5 PG (27.0-34.0); MEAN CORPUSCULAR HGB CONC 34.2 % (32.0-36.0); MONO % 4.7 % (0.0-8.0); PLATELET COUNT 245 TH/MM3 (150-450); RED BLOOD COUNT 2.85 MIL/MM3 (4.00-5.30); RED CELL DISTRIBUTION WIDTH 12.9 % (11.6-17.2); WHITE BLOOD COUNT 10.7 TH/MM3 (4.0-11.0)
[2016-04-20 07:39] LABS: HEMO FLAGS AUTO DIFF
[2016-04-20] MEDS: SODIUM CHLORIDE 0.9% FLUSH 5 ML FLUSH IV SCH (08:47)
[2016-04-20 08:49] VITALS: BP 122/74; PULSE 86; RESP 18; TEMP 97.9
[2016-04-20 10:18] LABS: BANDS 10 % (0-6); EOSINOPHILS 1 % (0-4); MYELOCYTES 1 % (0-0); NEUTROPHIL # MANUAL DIFF 9.2 TH/MM3 (1.8-7.7); PLATELET ESTIMATE SMEAR NORMAL (NORMAL); PLATELET MORPHOLOGY NORMAL (NORMAL); POLYS (SEG NEUTROPHILS) 75 % (16-70); SCAN/DIFF FINAL DIFF MANUAL; WBC DIFF SAMPLE 100
--- NOTE | 2016-04-20 11:32 | PD.OB.ANTE ---
Subjective Diagnosis: (1) Cellulitis of foot without toes Diagnosis: Principal (2) Diagnosis: Principal (3) Nutrition, metabolism, and development symptoms Diagnosis: Principal (Tristen Pope MD R2) Objective Vital Signs Vital Signs Date Time Temp Pulse Resp B/P Pulse Ox O2 Delivery O2 Flow Rate FiO2 04/20/16 08:49 97.9 86 18 122/74 04/20/16 03:00 18 04/20/16 01:00 18 04/19/16 19:59 98.0 81 18 123/70 04/19/16 17:25 98.0 04/19/16 17:25 20 04/19/16 17:25 69 119/57 04/19/16 12:07 98.1 75 20 04/19/16 12:06 113/67 Lab & Micro Results Test 04/19/16 04/20/16 16:27 05:57 White Blood Count 13.2 TH/MM3 10.7 TH/MM3 Red Blood Count 3.30 MIL/MM3 2.85 MIL/MM3 Hemoglobin 10.2 GM/DL 9.0 GM/DL Hematocrit 30.2 % 26.3 % Mean Corpuscular Volume 91.6 FL 92.0 FL Mean Corpuscular Hemoglobin 30.8 PG 31.5 PG Mean Corpuscular Hemoglobin 33.6 % 34.2 % Concent Red Cell Distribution Width 13.0 % 12.9 % Platelet Count 285 TH/MM3 245 TH/MM3 Mean Platelet Volume 8.4 FL 8.3 FL Neutrophils (%) (Auto) 79.0 % 77.0 % Lymphocytes (%) (Auto) 14.6 % 16.2 % Monocytes (%) (Auto) 4.6 % 4.7 % Eosinophils (%) (Auto) 1.6 % 1.6 % Basophils (%) (Auto) 0.2 % 0.5 % Neutrophils # (Auto) 10.4 TH/MM3 8.2 TH/MM3 Lymphocytes # (Auto) 1.9 TH/MM3 1.7 TH/MM3 Monocytes # (Auto) 0.6 TH/MM3 0.5 TH/MM3 Eosinophils # (Auto) 0.2 TH/MM3 0.2 TH/MM3 Basophils # (Auto) 0.0 TH/MM3 0.1 TH/MM3 CBC Comment DIFF FINAL AUTO DIFF Differential Comment FINAL DIFF MANUAL Differential Total Cells 100 Counted Neutrophils % (Manual) 75 % Band Neutrophils % 10 % Lymphocytes % 9 % Monocytes % 4 % Eosinophils % 1 % Neutrophils # (Manual) 9.2 TH/MM3 Myelocytes 1 % Platelet Estimate NORMAL Platelet Morphology Comment NORMAL Sodium Level 140 MEQ/L Potassium Level 3.7 MEQ/L Chloride Level 108 MEQ/L Carbon Dioxide Level 24.1 MEQ/L Anion Gap 8 MEQ/L Blood Urea Nitrogen 6 MG/DL Creatinine 0.56 MG/DL Estimat Glomerular Filtration 119 ML/MIN Rate Random Glucose 69 MG/DL Calcium Level 7.8 MG/DL Date/Time Procedure Status Source Growth 04/18/16 22:15 Aerobic Blood Culture - Preliminary Resulted Blood Peripheral NO GROWTH IN 1 DAY 04/18/16 22:15 Anaerobic Blood Culture - Preliminary Resulted Blood Peripheral NO GROWTH IN 1 DAY Physical Exam GENERAL: No distress SKIN: Warm and dry. Large area of mild erythema on dorsum of L foot; significantly decreased from photo of foot from several days prior. Minimal to no warmth. No areas of fluctuance. Laceration which is healing 11cm by 11cm area of erythema on the dorsal aspect of her left foot, slightly decreased from yesterday, which is mildly warm and moderately tender. No areas of fluctuance noted. HEENT: Normocephalic, moist mucous membranes NECK: Supple, trachea midline. No JVD. CARDIOVASCULAR: Regular rate and rhythm without murmurs. Normal peripheral perfusion in bilateral feet RESPIRATORY: CTAB; normal rate ABDOMEN/GI: Abdomen soft, non-tender, bowel sounds present, no rebound, no guarding. Gravid to 36 weeks size GENITOURINARY: Uterine Contractions: irregular EXTREMITIES: No cyanosis or edema. NEUROLOGICAL: Awake and alert. Grossly normal cranial nerves. Grossly normal motor and sensory function FHT's: Category: 1 Baseline: 125 Reactive: yes Variability: moderate Decels: none (Tristen Pope MD R2) Assessment and Plan Problem List: (1) Cellulitis of foot without toes Status: Acute Assessment & Plan: Patient presented with left foot cellulitis after failing to show improvement with outpatient treatment with Keflex by mouth. WBC of 15.9 with neutrophilia. No fever, fluctuance, joint involvement. 04/20- dramatic improvement relative to photos of prior cellulitis Blood cultures negative x2 days Clindamycin 600 mg IV every 8 hours, showed mild improvement after first dose. Site marked with surgical pen. -Will plan to discharge patient home on oral clindamycin 3 times a day Tylenol as needed for pain or fever (2) Polyhydramnios affecting Status: Acute Assessment & Plan: Impression: Patient is a 40-year-old at 36 weeks and 2 days who has a history of premature labor -BPP/NST performed 04/20 -Polyhydramnios stable. Cephalic presentation. BPP 09/30 -Continue monitoring (3) Nutrition, metabolism, and development symptoms Status: Acute Assessment & Plan: Fluids: s/p 500cc NS bolus Discussed with Dr. Diaz (Tristen Pope MD R2) Assessment and Plan Patient seen and evaluated with resident under direct supervision, agree with assessment and plan. (Esdras Diaz MD) Tristen Pope MD R2 Apr 20, 2016 11:32 Esdras Diaz MD Apr 26, 2016 12:05
--- NOTE | 2016-04-20 12:43 | HHI.DCPOC ---
Discharge Care Plan Diagnosis: (1) Cellulitis of foot without toes (2) Polyhydramnios affecting Goals to Promote Your Health * To prevent worsening of your condition and complications * To maintain your health at the optimal level Directions to Meet Your Goals Take your medications as prescribed Follow your dietary instruction Follow activity as directed Keep your appointments as scheduled Take your immunizations and boosters as scheduled If your symptoms worsen call your PCP, if no PCP go to Urgent Care Center or Emergency Room Smoking is Dangerous to Your Health. Avoid second hand smoke Call the 24-hour hour crisis hotline for domestic abuse at Tristen Pope MD R2 Apr 20, 2016 12:43
[2016-04-20] MEDS ORDERED: CLEO300C2 PO (12:47)
[2016-05-06] MEDS ORDERED: FERRTAB2 PO (10:38)
[2016-05-13] MEDS ORDERED: IBUP800T23 PO (11:01)
== END 2016-04-20 13:36 | disposition home or self-care (01) | DRG 781 ==
LOC: NEPC 20:03 → NEDA 04-19 00:34 → H2EB 04-19 01:46
PROVIDERS: ADMIT Obstetrics & Gynecology Obstetrics; ATTEND Obstetrics & Gynecology Obstetrics
DX: O26.893 Other specified pregnancy related conditions, third trimester (principal); L03.116 Cellulitis of left lower limb; O40.3XX0 Polyhydramnios, third trimester, not applicable or unspecified; Z3A.36 36 weeks gestation of pregnancy; O99.333 Smoking (tobacco) complicating pregnancy, third trimester; F17.210 Nicotine dependence, cigarettes, uncomplicated; O09.523 Supervision of elderly multigravida, third trimester; Z86.19 Personal history of other infectious and parasitic diseases
CPT/HCPCS: 76819; 80048; 83605; 85007; 85025; 85027; 87040; 99285; J7120

== ENCOUNTER 2016-04-30 07:38 | Inpatient (IN) | payer OTHER ==
[~2016-04-30] VITALS: Ht 185.4 cm; Wt 83.0 kg
[2016-04-30] VITALS (114 sets, daily range): BP systolic 111–147; BP diastolic 54–97; PULSE 66–96; RESP 12–20; TEMP 97.7–98.6; O2SAT 98–100
[~2016-04-30 07:38] MED LIST changes: -CEPH-460 PO; +CLEO300C2 PO
--- NOTE | 2016-04-30 08:46 | PD ---
HPI Chief Complaint contractions Date Seen: Apr 30, 2016 Time Seen: 08:33 Travel History International Travel<30 Days: No Contact w/Intl Traveler<30Days: No Known Affected Area: No History of Present Illness HPI 40-year-old at 38 and 0/7 weeks today, EDC 05/14/16 with contractions occurring every 4 minute since 4:30 this morning. OB care is with [facility]. She denies leakage of fluid, and vaginal bleeding. She feels baby moving regularly. She denies CROWDER/N/V/D/fever/sick contacts/SOB/calf pain/dizziness/ seeing spots. Patient states she plans to have a tubal ligation after vaginal delivery as an outpatient. She states she has tubal ligation consents already signed through [facility]. She does not desire an epidural but does want IV pain medication as needed. She states she has Demerol with previous deliveries. GBS is positive Patient also states she was recently treated for left foot cellulitis during an OB ED stay last week. She has been taking clindamycin by mouth since discharge, last dose last night. She states that the cellulitis is very improved. Of note, patient was scheduled for ultrasound - BPP without NST - with OB diagnostics today at 10 AM due to AMA and previous first trimester losses History Past Medical History Medical History: Denies Significant Hx Obstetric History Obstetric History JAZMIN 05/14/16 - by 1st Trimester Ultrasound on 10/22/15 2 Blood Type: A POSITIVE A POSITIVE u Group B Strep: u A POSITIVE u Problems/Plan AMA 40 yr old, Hx PTD @ 34 wks smoker Tobacco use OBD testing at 36 wks. SONO finding 12/17- ECF- Negative NIPT. 03/12 Polyhydramnios (29.1 cm) Declined Amnio Desires Tubal TSH 0.04-full thyroid panel wnl "Valente Anastacia" Has f/u OBD scheduled in Mar. 03/14-FAILED 1 HR, PASSED 3 HR GBS POS Standard Items 3 Result Result Date Next Due Freq/Seq Obstetric Labs Initial HIV (1&2) Antibody nonreactive 10/22/15 (10w5d) 02/06/16 (26w0d) 26w0d Thyroid Stimulating Hormone (TSH) 0.04 10/22/15 (10w5d) PRN Varicella-Zoster IgM Antibody Result Unavailable 10/22/15 (10w5d) Complete 6w0d Varicella-Zoster IgG Antibody 2.2 10/22/15 (10w5d) Complete 6w0d Hematocrit 26.3 L 04/20/16 (36w4d) Complete 6w0d 30.2 L 04/19/16 (36w3d) 26w0d 30.4 L 04/18/16 (36w2d) 31.3 L 03/23/16 (32w4d) 36.4 L 10/22/15 (10w5d) 35.5 09/29/15 (7w3d) Hemoglobin 9.0 L 04/20/16 (36w4d) Complete 6w0d 10.2 L 04/19/16 (36w3d) 26w0d 10.6 L 04/18/16 (36w2d) 10.8 L 03/23/16 (32w4d) 12.1 L 10/22/15 (10w5d) 11.6 09/29/15 (7w3d) Blood Type A POSITIVE 09/29/15 (7w3d) PRN Obstetric Labs 24-28 WKS Hematocrit 26.3 L 04/20/16 (36w4d) Complete 6w0d 30.2 L 04/19/16 (36w3d) 26w0d 30.4 L 04/18/16 (36w2d) 31.3 L 03/23/16 (32w4d) 36.4 L 10/22/15 (10w5d) 35.5 09/29/15 (7w3d) Hemoglobin 9.0 L 04/20/16 (36w4d) Complete 6w0d 10.2 L 04/19/16 (36w3d) 26w0d 10.6 L 04/18/16 (36w2d) 10.8 L 03/23/16 (32w4d) 12.1 L 10/22/15 (10w5d) 11.6 09/29/15 (7w3d) Obstetric Labs 32-36 WKS Group B Streptococcus Screen Manual Instance 04/09/16 (35w0d) Complete 35w0d History 2 : 7 AB Spontaneous: 3 Term: 2 Mult Births: 0 : 1 Ectopic: 0 AB Induced: 0 Living Children: 3 Past Pregnancies 3 Delivery Gest. Outcome Route Length of Anesthesia Delivery Date Age/Wks # Weight/Sex Labor Location Labor 02/14/93 38 1 Live Vaginal 5 lbs 4 oz - F 4 Hrs None [place] No 11/27/95 34 1 Live Vaginal 4 lbs 15 oz - M 52 Hrs None [place] Yes 10/10/99 40 1 Live Vaginal 7 lbs 1 oz - F 5 Hrs Epidural CA No OTHER- Care-Labs/US Initial lab date: Oct 22, 2015 Blood type: A D (Rh) Type: Positive Antibody screen: negative Hematocrit (%): 36.4 Hemoglobin (dL): 12.1 Pap test: normal Rubella: Immune VDRL: negative Urine screen: Normal HBsAg: negative HIV: negative Chlamydia: negative Gonorrhea: negative Cystic fibrosis: negative (NEG FOR CF/SMA/FRAGILE X) TSH: 0.04 Varicella: Positive MRSA screen: Denied MRSA Hx MSAFP/multiple markers: negative (VERIFI NEG, HAVING A GIRL) Visit date: Mar 14, 2016 Hematocrit (%): 34.1 Hemoglobin (dL): 11.2 Diabetes screen - 1-hr GGT: 154 Glucose tolerance test: Fasting blood sugar: 77 1-hour result: 135 2-hour result: 96 3-hour result: 107 HIV: Negative Hepatitis B: Negative Visit date: Apr 09, 2016 Chlamydia (32 - 36 week labs): negative Gonorrhea (32 - 36 week labs): negative Beta strep culture: positive MRSA screen: Denied MRSA Hx Allergies-Medications (Allergen,Severity, Reaction): Coded Allergies: No Known Allergies (Unverified , 04/29/16) Home Meds Active Scripts Clindamycin (Cleocin)300 Mg Che453 Mg PO Q6H #40 CAP Ref 0 Prov:Tristen Pope MD R2 04/20/16 Acetaminophen (Tylenol Extra Strength)500 Mg Fnb333 Mg PO Q6HR PRN (PAIN) #20 TAB Ref 0 Prov:Tristen Pope MD R2 03/23/16 Reported Medications W/O Vit A W/ Fe Carbo (Prenate Mini 18-0.6-0.4-350 mg)1 Cap Cap 01/14/16 Review of Systems Except as stated in HPI: all other systems reviewed are Neg Physical Exam Narrative GENERAL: Well-nourished, well-developed patient. SKIN: Warm and dry. Mild erythema overlying a longitudinal abrasion on the left anterior foot. HEAD: Normocephalic and atraumatic. EYES: No scleral icterus. No injection or drainage. ENT: No nasal drainage noted. Mucous membranes pink. Airway patent. NECK: Supple, trachea midline. No JVD. CARDIOVASCULAR: Regular rate and rhythm without murmurs, gallops, or rubs. RESPIRATORY: Breath sounds equal bilaterally. No accessory muscle use. ABDOMEN/GI: Abdomen soft, non-tender, bowel sounds present, no rebound, no guarding. GENITOURINARY: External Genitalia: intact and normal in appearance. Some perirectal condylomatous changes noted. Cervix: 2-3/80%/-3. Cervix is soft. Membranes: intact Uterine Contractions: Every 3-4 minutes, moderate intensity FHT's: Category: 1 Baseline: 130 Reactive: Yes to 150 Variability: Moderate Decels: Absent EXTREMITIES: No cyanosis or edema. BACK: Nontender without obvious deformity. No CVA tenderness. NEUROLOGICAL: Awake and alert. Motor and sensory grossly within normal limits. Five out of 5 muscle strength in all muscle groups. Normal speech. Data Data Vital Signs Reviewed: Yes (BP 114/77, pulse 86, respirations 20, afebrile to 97.4F) Orders Us Ob Bpp Wo Nst W Repeat (04/30/16 ) MDM Medical Record Reviewed: Yes Narrative Course / MDM 40-year-old at 38 and 0/7 weeks today, EDC 05/14/16 with contractions occurring every 4 minute since 4:30 this morning here for labor check. AMA Previous loss 3 (prior to normal 3) Hx of cellulitis left foot Intrauterine : Category 1 tracing Patient desires vaginal delivery Intact membranes OBD this morning for US - BPP preliminary report showing polyhydramnios (BRENDEN 39.4 cm, BPP 09/30, estimated weight 3488 g, anterior grade 2 placenta without evidence of previa, cephalic presentation. Does not want epidural, would like IV meds (possibly Demerol) Will admit to L&D for labor Order admit labs CBC, UA, clotting studies IV fluids Monitor heart tones Routine care Previous GBS positive: -Start IV penicillin per protocol Cellulitis left foot -was on Clinda PO, clinically looks improved -since GBS prophylaxis will be initiated, will d/c Clinda at this time SDW Dr. Velarde Diagnosis Diagnosis: Primary Impression: 38 weeks gestation of Additional Impression: AMA (advanced maternal age) multigravida 35+ Laura Pascual MD R1 Apr 30, 2016 08:46
[2016-04-30] MEDS ORDERED: LACTATED RINGER'S 1000 ML INJ 1,000 ML IV PRN (08:54)
[2016-04-30] MEDS ORDERED: LIDOCAINE HCL 1% 50 ML VIAL INFIL PRN (09:00)
[2016-04-30] MEDS ORDERED: MINERAL OIL 10 ML VIAL TOPICAL PRN (09:00)
[2016-04-30] MEDS ORDERED: OXYTOCIN 30 UNITS-500ML PREMIX 500 ML IV ONE ×2 (09:00→21:30)
[2016-04-30] MEDS ORDERED: LIDOCAINE HCL 1% 50 ML VIAL I-DERMAL PRN (09:00)
[2016-04-30] MEDS ORDERED: CITRIC ACID-SODIUM CITRATE LIQ 30 ML UDC PO SCH (09:00)
[2016-04-30] MEDS ORDERED: SODIUM CHLORID 0.9% 500 ML INJ 500 ML IV PRN (09:00)
[2016-04-30] MEDS ORDERED: SODIUM CHLOR 0.9% 1000 ML INJ 1,000 ML IV PRN (09:14)
--- NOTE | 2016-04-30 09:16 | HHI.HP ---
HPI Chief Complaint contractions, BRENDEN 40 Date Seen: Apr 30, 2016 Time Seen: 09:16 Travel History International Travel<30 Days: No Contact w/Intl Traveler<30Days: No Known Affected Area: No History of Present Illness HPI 40-year-old at 38 and 0/7 weeks today, EDC 05/14/16 with contractions occurring every 4 minute since 4:30 this morning. OB care is with [facility]. She denies leakage of fluid, and vaginal bleeding. She feels baby moving regularly. She denies CORWDER/N/V/D/fever/sick contacts/SOB/calf pain/dizziness/ seeing spots. Patient states she plans to have a tubal ligation after vaginal delivery as an outpatient. She states she has tubal ligation consents already signed through [facility]. She does not desire an epidural but does want IV pain medication as needed. She states she has Demerol with previous deliveries. GBS is positive Patient also states she was recently treated for left foot cellulitis during an OB ED stay last week. She has been taking clindamycin by mouth since discharge, last dose last night. She states that the cellulitis is very improved. Of note, patient was scheduled for ultrasound - BPP without NST - with OB diagnostics today at 10 AM due to AMA and previous first trimester losses History Obstetric History Obstetric History JAZMIN 05/14/16 - by 1st Trimester Ultrasound on 10/22/15 2 Blood Type: A POSITIVE A POSITIVE u Group B Strep: u A POSITIVE u Problems/Plan AMA 40 yr old, Hx PTD @ 34 wks smoker Tobacco use OBD testing at 36 wks. SONO finding 12/17- ECF- Negative NIPT. 03/12 Polyhydramnios (29.1 cm) Declined Amnio Desires Tubal TSH 0.04-full thyroid panel wnl "Valente Anastacia" Has f/u OBD scheduled in Mar. 03/14-FAILED 1 HR, PASSED 3 HR GBS POS Standard Items 3 Result Result Date Next Due Freq/Seq Obstetric Labs Initial HIV (1&2) Antibody nonreactive 10/22/15 (10w5d) 02/06/16 (26w0d) 26w0d Thyroid Stimulating Hormone (TSH) 0.04 10/22/15 (10w5d) PRN Varicella-Zoster IgM Antibody Result Unavailable 10/22/15 (10w5d) Complete 6w0d Varicella-Zoster IgG Antibody 2.2 10/22/15 (10w5d) Complete 6w0d Hematocrit 26.3 L 04/20/16 (36w4d) Complete 6w0d 30.2 L 04/19/16 (36w3d) 26w0d 30.4 L 04/18/16 (36w2d) 31.3 L 03/23/16 (32w4d) 36.4 L 10/22/15 (10w5d) 35.5 09/29/15 (7w3d) Hemoglobin 9.0 L 04/20/16 (36w4d) Complete 6w0d 10.2 L 04/19/16 (36w3d) 26w0d 10.6 L 04/18/16 (36w2d) 10.8 L 03/23/16 (32w4d) 12.1 L 10/22/15 (10w5d) 11.6 09/29/15 (7w3d) Blood Type A POSITIVE 09/29/15 (7w3d) PRN Obstetric Labs 24-28 WKS Hematocrit 26.3 L 04/20/16 (36w4d) Complete 6w0d 30.2 L 04/19/16 (36w3d) 26w0d 30.4 L 04/18/16 (36w2d) 31.3 L 03/23/16 (32w4d) 36.4 L 10/22/15 (10w5d) 35.5 09/29/15 (7w3d) Hemoglobin 9.0 L 04/20/16 (36w4d) Complete 6w0d 10.2 L 04/19/16 (36w3d) 26w0d 10.6 L 04/18/16 (36w2d) 10.8 L 03/23/16 (32w4d) 12.1 L 10/22/15 (10w5d) 11.6 09/29/15 (7w3d) Obstetric Labs 32-36 WKS Group B Streptococcus Screen Manual Instance 04/09/16 (35w0d) Complete 35w0d History 2 : 7 AB Spontaneous: 3 Term: 2 Mult Births: 0 : 1 Ectopic: 0 AB Induced: 0 Living Children: 3 Past Pregnancies 3 Delivery Gest. Outcome Route Length of Anesthesia Delivery Date Age/Wks # Weight/Sex Labor Location Labor 02/14/93 38 1 Live Vaginal 5 lbs 4 oz - F 4 Hrs None [place] No 11/27/95 32 1 Live Vaginal 4 lbs 15 oz - M 52 Hrs None [place] Yes 10/10/99 38 1 Live Vaginal 7 lbs 1 oz - F 5 Hrs Epidural [place] No OTHER- Care-Labs/US Initial lab date: Oct 22, 2015 Blood type: A D (Rh) Type: Positive Antibody screen: negative Hematocrit (%): 36.4 Hemoglobin (dL): 12.1 Pap test: normal Rubella: Immune VDRL: negative Urine screen: Normal HBsAg: negative HIV: negative Chlamydia: negative Gonorrhea: negative Cystic fibrosis: negative (NEG FOR CF/SMA/FRAGILE X) TSH: 0.04 Varicella: Positive MRSA screen: Denied MRSA Hx MSAFP/multiple markers: negative (VERIFI NEG, HAVING A GIRL) Visit date: Mar 14, 2016 Hematocrit (%): 34.1 Hemoglobin (dL): 11.2 Diabetes screen - 1-hr GGT: 154 Glucose tolerance test: Fasting blood sugar: 77 1-hour result: 135 2-hour result: 96 3-hour result: 107 HIV: Negative Hepatitis B: Negative Visit date: Apr 09, 2016 Chlamydia (32 - 36 week labs): negative Gonorrhea (32 - 36 week labs): negative Beta strep culture: positive MRSA screen: Denied MRSA Hx Past Surgical History Narrative Surgical Bilateral knee arthroscopy Allergies-Medications (Allergen,Severity, Reaction): Coded Allergies: No Known Allergies (Unverified , 04/29/16) Home Meds Active Scripts Clindamycin (Cleocin)300 Mg Eak989 Mg PO Q6H #40 CAP Ref 0 Prov:Tristen Pope MD R2 04/20/16 Acetaminophen (Tylenol Extra Strength)500 Mg Cjm279 Mg PO Q6HR PRN (PAIN) #20 TAB Ref 0 Prov:Tristen Pope MD R2 03/23/16 Reported Medications W/O Vit A W/ Fe Carbo (Prenate Mini 18-0.6-0.4-350 mg)1 Cap Cap 01/14/16 Review of Systems Except as stated in HPI: all other systems reviewed are Neg Physical Exam Narrative GENERAL: Well-nourished, well-developed patient. SKIN: Warm and dry. Mild erythema overlying a longitudinal abrasion on the left anterior foot. HEAD: Normocephalic and atraumatic. EYES: No scleral icterus. No injection or drainage. ENT: No nasal drainage noted. Mucous membranes pink. Airway patent. NECK: Supple, trachea midline. No JVD. CARDIOVASCULAR: Regular rate and rhythm without murmurs, gallops, or rubs. RESPIRATORY: Breath sounds equal bilaterally. No accessory muscle use. ABDOMEN/GI: Abdomen soft, non-tender, bowel sounds present, no rebound, no guarding. GENITOURINARY: External Genitalia: intact and normal in appearance. Some perirectal condylomatous changes noted. Cervix: 2-3/80%/-3. Cervix is soft. Membranes: intact Uterine Contractions: Every 3-4 minutes, moderate intensity FHT's: Category: 1 Baseline: 130 Reactive: Yes to 150 Variability: Moderate Decels: Absent EXTREMITIES: No cyanosis or edema. BACK: Nontender without obvious deformity. No CVA tenderness. NEUROLOGICAL: Awake and alert. Motor and sensory grossly within normal limits. Five out of 5 muscle strength in all muscle groups. Normal speech. Data Data Vital Signs Reviewed: Yes (BP 114/77, pulse 86, respirations 20, afebrile to 97.4F) Orders Us Ob Bpp Wo Nst W Repeat (04/30/16 ) Ob (2e) Additional Admit Info (04/30/16 08:54) Admit To Inpatient (04/30/16 ) Code Status (04/30/16 08:54) Vital Signs (Adult) .Per protocol (04/30/16 08:54) Activity Oob Ad Amy (04/30/16 08:54) ^ Heart (04/30/16 08:54) ^ Amnioinfusion (04/30/16 08:54) Urinary Catheter Management .ONCE (04/30/16 08:54) Diet Liquid (04/30/16 Breakfast) Lactated Ringer's 1000 Ml Inj (Lr 1000 M (04/30/16 08:54) Lactated Ringer's 1000 Ml Inj (Lr 1000 M (04/30/16 08:54) Sodium Chlorid 0.9% 500 Ml Inj (Ns 500 M (04/30/16 09:00) Sodium Chlor 0.9% 1000 Ml Inj (Ns 1000 M (04/30/16 09:14) Lidocaine 1% Inj (50 Ml) (Xylocaine 1% I (04/30/16 09:00) Citric Acid-Sodium Citrate Liq (Bicitra (04/30/16 09:00) Fentanyl Inj (Fentanyl Inj) (04/30/16 09:00) Fentanyl Inj (Fentanyl Inj) (04/30/16 09:00) Penicillin G Potassium Inj (Pfizerpen-G (04/30/16 09:00) Penicillin G Potassium Inj (Pfizerpen-G (04/30/16 13:00) Complete Blood Count With Diff (04/30/16 08:54) Hold Clot (04/30/16 08:54) Abo/Rh Blood Type (04/30/16 08:54) Urinalysis - C+S If Indicated (04/30/16 08:54) Resp Oxygen Non Rebreathe Mask (04/30/16 ) ^ Epidural / Intrathecal Infus (04/30/16 08:54) Oxytocin 30 Units-500ml Premix (Pitocin (04/30/16 09:00) Lidocaine 1% Inj (50 Ml) (Xylocaine 1% I (04/30/16 09:00) Light Mineral Oil (Muri-Lube Oil) (04/30/16 09:00) Inpatient Certification (04/30/16 ) Vital Signs (Adult) .ON ADMISSION (04/30/16 09:00) ^ Labor Status (04/30/16 09:00) ^ Hydration (04/30/16 09:00) Assessment/Plan Assessment and Plan 40-year-old at 38 and 0/7 weeks today, EDC 05/14/16 with contractions occurring every 4 minute since 4:30 this morning here for labor check. AMA Previous loss 3 (prior to normal 3) Hx of cellulitis left foot Intrauterine : Category 1 tracing Patient desires vaginal delivery Intact membranes OBD this morning for US - BPP preliminary report showing polyhydramnios (BRENDEN 39.4 cm, BPP 09/30, estimated weight 3488 g, anterior grade 2 placenta without evidence of previa, cephalic presentation. Does not want epidural, would like IV meds (possibly Demerol) Will admit to L&D for labor Order admit labs CBC, UA, clotting studies IV fluids Monitor heart tones Routine care Previous GBS positive: -Start IV penicillin per protocol Cellulitis left foot -was on Clinda PO, clinically looks improved -since GBS prophylaxis will be initiated, will d/c Clinda at this time Desires tubal ligation -She will get it after vaginal delivery as outpatient -States she has tubal ligation consents available, will call OB provider to obtain -If becomes necessary, patient would like tubal ligation SELVIN Velarde Discharge Planning Likely 12 days after delivery Laura Pascual MD R1 Apr 30, 2016 09:16
--- NOTE | 2016-04-30 09:19 | PD ---
History of Present Illness Date Seen: Apr 30, 2016 History of Present Illness 38 wk IUP with painful reg CTXs , no bleeding or SROM , FHR reactive , CTXs q 4 min US today -0980-7521 gm baby + polyhydramnios with BRENDEN 40 cx 3/50/-3ballotable vtx Imp- early labor in this multip with poly Plan admit for delivery Vaibhav Velarde II, MD Apr 30, 2016 09:19
[2016-04-30 09:42] LABS: BLOOD, URINE NEG (NEG); GLUCOSE,URINE NEG (NEG); HYALINE CAST, URINE 1 /lpf (RARE); KETONE, URINE NEG (NEG); MUCUS URINE FEW /lpf (OCC); NITRITE,URINE NEG (NEG); PH, URINE 7.5 (5.0-8.5); SQUAMOUS EPITHELIAL CELL URINE 1 /hpf (0-5); URINE COLOR YELLOW (YELLW/STRAW)
[2016-04-30 09:43] LABS: COMMENT (UR) CULT NOT INDICATED; CULTURE IF INDICATED CULT NOT INDICATED
[2016-04-30] MEDS: LACTATED RINGER'S 1000 ML INJ 1,000 ML IV SCH ×2 (09:46→15:18)
[2016-04-30] MEDS ORDERED: PENICILLIN G POTASSIUM INJ 5,000,000 UNITS in SODIUM CHLORIDE 0.9% INJ 100 ML IV ONE (10:00)
[2016-04-30 10:01] LABS: AUTOMATED NEUTROPHIL # 10.6 TH/MM3 (1.8-7.7); BASOPHIL % 0.2 % (0.0-2.0); EOSINOPHIL # 0.1 TH/MM3 (0-0.4); EOSINOPHIL % 0.5 % (0.0-4.0); HEMATOCRIT 31.1 % (35.0-46.0); HEMO FLAGS DIFF FINAL; LYMPH % 10.4 % (9.0-44.0); LYMPHOCYTE # 1.3 TH/MM3 (1.0-4.8); MEAN CELL VOLUME 91.2 FL (80.0-100.0); MEAN CORPUSCULAR HEMOGLOBIN 31.2 PG (27.0-34.0); MEAN CORPUSCULAR HGB CONC 34.2 % (32.0-36.0); MONO % 4.1 % (0.0-8.0); NEUT % 84.8 % (16.0-70.0); PLATELET COUNT 331 TH/MM3 (150-450); RED BLOOD COUNT 3.41 MIL/MM3 (4.00-5.30); RED CELL DISTRIBUTION WIDTH 13.3 % (11.6-17.2); WHITE BLOOD COUNT 12.6 TH/MM3 (4.0-11.0)
[2016-04-30] MEDS ORDERED: SODIUM CHLORIDE 0.9% FLUSH 5 ML FLUSH IV FLUSH PRN (10:45)
[2016-04-30] MEDS ORDERED: MISOPROSTOL 25 MCG SUPP VAGINAL ONE (12:00)
--- NOTE | 2016-04-30 12:27 | PD.LABORPN ---
Subjective Subjective Patient is reportedly doing well. She is currently receiving her first dose of penicillin G for GBS positive status. She has received first dose of Cytotec at approximately 12 PM. (Laura Pascual MD R1) Objective Vital Signs Vital Signs Date Time Temp Pulse Resp B/P Pulse Ox O2 Delivery O2 Flow Rate FiO2 04/30/16 12:10 76 121/69 04/30/16 12:10 75 04/30/16 12:05 80 04/30/16 12:00 79 04/30/16 11:55 76 04/30/16 11:50 76 04/30/16 11:45 78 04/30/16 11:40 88 04/30/16 11:35 86 04/30/16 11:30 77 04/30/16 11:25 85 04/30/16 11:20 69 04/30/16 11:18 74 04/30/16 11:15 136/81 04/30/16 11:14 97.7 16 04/30/16 11:10 78 04/30/16 11:05 74 04/30/16 11:00 73 04/30/16 10:22 84 121/70 04/30/16 10:20 69 04/30/16 10:15 70 Objective Pelvic Exam: Cervix: 3/50%/-3/medium/posterior/vertex/membranes intact FHT's: Category: 1 Baseline: 140 Reactive: Yes to 160 Variability: moderate Decels: Absent (Laura Pascual MD R1) Assessment/Plan Problem List: (1) 38 weeks gestation of Assessment and Plan 40-year-old at 38 and 0/7 weeks today, EDC 05/14/16 admitted to L&D on for induction of labor due to polyhydramnios and contractions with cervix favorable for vaginal delivery. Significant history: AMA Previous loss 3 (prior to normal 3) Hx of cellulitis left foot PLAN: Intrauterine : Category 1 tracing Expect vaginal delivery Pitocin first dose at 12 PM today Intact membranes US this morning- BPP preliminary report showing polyhydramnios (BRENDEN 39.4 cm, BPP 8/8, estimated weight 3488 g, anterior grade 2 placenta without evidence of previa, cephalic presentation. Does not want epidural, would like IV meds (possibly Demerol) CBC showing mildly elevated white count of 12.6, H&H 10.6/31.1, platelets 331 UA unremarkable IV fluids per routine Monitor heart tones Routine care Previous GBS positive: First dose penicillin started at 10 AM, continue during labor per protocol Cellulitis left foot -was on Clinda PO, clinically looks improved -since GBS prophylaxis will be initiated, will d/c Clinda at this time Desires tubal ligation -She will get it after vaginal delivery as outpatient, states she has tubal ligation consents available, consider is available in chart if indicated ( Laura Pascual MD R1) Attestation Agree with above plan and am following patient closely with residents (Genia Pool MD) Laura Pascual MD R1 Apr 30, 2016 12:27 Genia Pool MD May 01, 2016 09:20
[2016-04-30] MEDS: PENICILLIN G POTASSIUM INJ 2,500,000 UNITS in SODIUM CHLORIDE 0.9% INJ 100 ML IV SCH ×2 (14:01→18:03)
--- NOTE | 2016-04-30 16:15 | PD.LABORPN ---
Subjective Subjective Patient in good spirits, membranes still intact with Cat 1 strip and irregular contractions every 3-5 minutes. She has completed her second dose of penicillin. Cervical exam is 3cm and -2 station, ballotable amniotic sac with US -documented BRENDEN approx 40. Spinal needle was used to attempt gentle puncture of sac, but bag too ballotable. Small puncture made in amniotic sac with amniotone at approximately 1400, with small flow of clear fluid noted. Patient has no concerns. Objective Vital Signs Vital Signs Date Time Temp Pulse Resp B/P Pulse Ox O2 Delivery O2 Flow Rate FiO2 04/30/16 15:40 82 04/30/16 15:35 79 04/30/16 15:30 82 04/30/16 15:25 92 04/30/16 15:20 72 04/30/16 15:15 87 04/30/16 15:14 16 04/30/16 15:12 70 123/76 04/30/16 15:10 82 04/30/16 15:05 75 04/30/16 15:00 83 04/30/16 14:55 68 04/30/16 14:50 87 04/30/16 14:45 77 04/30/16 14:40 76 04/30/16 14:35 86 04/30/16 14:30 74 04/30/16 14:25 76 04/30/16 14:20 80 04/30/16 14:15 85 04/30/16 14:12 16 04/30/16 14:11 82 117/73 04/30/16 14:10 79 04/30/16 14:05 80 04/30/16 14:00 78 04/30/16 13:55 74 04/30/16 13:50 83 04/30/16 13:45 84 04/30/16 13:40 73 04/30/16 13:35 80 04/30/16 13:30 81 04/30/16 13:25 77 04/30/16 13:20 74 04/30/16 13:15 75 04/30/16 13:15 116/67 04/30/16 13:15 76 04/30/16 13:14 16 04/30/16 13:10 75 04/30/16 13:05 75 04/30/16 13:00 73 04/30/16 12:50 81 04/30/16 12:45 16 04/30/16 12:45 85 04/30/16 12:40 73 04/30/16 12:35 70 04/30/16 12:30 84 04/30/16 12:25 79 04/30/16 12:20 79 04/30/16 12:15 16 04/30/16 12:15 82 04/30/16 12:10 76 121/69 04/30/16 12:10 75 04/30/16 12:05 80 04/30/16 12:00 79 04/30/16 11:55 76 04/30/16 11:50 76 04/30/16 11:45 78 04/30/16 11:40 88 04/30/16 11:35 86 04/30/16 11:30 77 04/30/16 11:25 85 04/30/16 11:20 69 04/30/16 11:18 74 04/30/16 11:15 136/81 04/30/16 11:14 97.7 16 04/30/16 11:10 78 04/30/16 11:05 74 04/30/16 11:00 73 04/30/16 10:22 84 121/70 04/30/16 10:20 69 04/30/16 10:15 70 Objective Pelvic Exam: Cervix: 3/50%/-3 Presentation: Vertex Membranes: AROM at 1607, clear Uterine Contractions: Every 3-5, 70 mvu FHT's: Category: 1 Baseline: 150 Reactive:y to 170 Variability:mod Decels: none noted Assessment/Plan Problem List: (1) 38 weeks gestation of Assessment and Plan 40-year-old at 38 and 0/7 weeks today, EDC 05/14/16 admitted to L&D on for induction of labor due to polyhydramnios and contractions Significant history: AMA Previous loss 3 (prior to normal 3) Hx of cellulitis left foot PLAN: Intrauterine : Category 1 tracing Expect vaginal delivery Pitocin x1 placed at 12 PM today AROM at 1607 US this morning- BPP preliminary report showing polyhydramnios (BRENDEN 39.4 cm, BPP 8/8, estimated weight 3488 g, anterior grade 2 placenta without evidence of previa, cephalic presentation. Does not want epidural, would like IV meds (possibly Demerol) CBC showing mildly elevated white count of 12.6, H&H 10.6/31.1, platelets 331 UA unremarkable IV fluids per routine Monitor heart tones Routine care Previous GBS positive: First dose penicillin started at 10 AM, continue during labor per protocol Cellulitis left foot -was on Clinda PO, clinically looks improved -since GBS prophylaxis will be initiated, will d/c Clinda at this time Desires tubal ligation -She will get it after vaginal delivery as outpatient, states she has tubal ligation consents available, consider is available in chart if indicated Laura Pascual MD R1 Apr 30, 2016 16:15
--- NOTE | 2016-04-30 16:19 | PD.LABORPN ---
Subjective Subjective Patient with mild contractions after 25mcg cytotec. Baseline FHT 140, moderate variability, accels presentl Objective Vital Signs Vital Signs Date Time Temp Pulse Resp B/P Pulse Ox O2 Delivery O2 Flow Rate FiO2 04/30/16 15:40 82 04/30/16 15:35 79 04/30/16 15:30 82 04/30/16 15:25 92 04/30/16 15:20 72 04/30/16 15:15 87 04/30/16 15:14 16 04/30/16 15:12 70 123/76 04/30/16 15:10 82 04/30/16 15:05 75 04/30/16 15:00 83 04/30/16 14:55 68 04/30/16 14:50 87 04/30/16 14:45 77 04/30/16 14:40 76 04/30/16 14:35 86 04/30/16 14:30 74 04/30/16 14:25 76 04/30/16 14:20 80 04/30/16 14:15 85 04/30/16 14:12 16 04/30/16 14:11 82 117/73 04/30/16 14:10 79 04/30/16 14:05 80 04/30/16 14:00 78 04/30/16 13:55 74 04/30/16 13:50 83 04/30/16 13:45 84 04/30/16 13:40 73 04/30/16 13:35 80 04/30/16 13:30 81 04/30/16 13:25 77 04/30/16 13:20 74 04/30/16 13:15 75 04/30/16 13:15 116/67 04/30/16 13:15 76 04/30/16 13:14 16 04/30/16 13:10 75 04/30/16 13:05 75 04/30/16 13:00 73 04/30/16 12:50 81 04/30/16 12:45 16 04/30/16 12:45 85 04/30/16 12:40 73 04/30/16 12:35 70 04/30/16 12:30 84 04/30/16 12:25 79 04/30/16 12:20 79 04/30/16 12:15 16 04/30/16 12:15 82 04/30/16 12:10 76 121/69 04/30/16 12:10 75 04/30/16 12:05 80 04/30/16 12:00 79 04/30/16 11:55 76 04/30/16 11:50 76 04/30/16 11:45 78 04/30/16 11:40 88 04/30/16 11:35 86 04/30/16 11:30 77 04/30/16 11:25 85 04/30/16 11:20 69 04/30/16 11:18 74 04/30/16 11:15 136/81 04/30/16 11:14 97.7 16 04/30/16 11:10 78 04/30/16 11:05 74 04/30/16 11:00 73 04/30/16 10:22 84 121/70 04/30/16 10:20 69 04/30/16 10:15 70 Objective Pelvic Exam: Cervix: [-] Dilatation: [-4] Effacement: [-50] Station: [-2-] Presentation: [vtx-] Membranes: [intact ] Uterine Contractions: q4min FHT's: Category: [1-] Baseline: [-140] Reactive: [-] Variability: [-mod] Decels: [-absent] amniotone used to provide small leak for fluid, clear. Coming out at a small trickle, cephalic is descending. Assessment/Plan Problem List: (1) 38 weeks gestation of Plan: Will start pitocin in approx 1 hour as the vertex descends. Genia Pool MD Apr 30, 2016 16:19
[2016-04-30] MEDS ORDERED: OXYTOCIN 30 UNITS-500ML PREMIX 500 ML IV SCH (18:30)
--- NOTE | 2016-04-30 18:35 | HHI.PR ---
VISUAL C DEVELOPER Note Note Patient with polyhydramnios here for induction. Amnitome used to create small leak in bag. After this was performed patient has leaked out copious amounts of clear fluid but on exam cervix is 4-5/80/-2, head still very ballotable. I do not recommend a gross amniotomy due to the floating head (BRENDEN over 40 prior to induction). Will continue with induction but stress the need for continuous monitoring and have counselled the patient on the possiblities of emergency if cord prolapse were to occur. Presently category 1 tracing with baseline 140, moderate variability, accels present, no decelerations. Genia Pool MD Apr 30, 2016 18:35
[2016-04-30] MEDS ORDERED: TERBUTALINE INJ 1 MG/ML AMP ONE (20:18)
--- NOTE | 2016-04-30 20:20 | PD.LABORPN ---
Subjective Subjective Since last exam, patient has had further passage of fluid and recently developed variable decels. Pitocin has been stopped. Position change. Cervix 6cm/80%/-2. No report of cord prolapse. Objective Vital Signs Vital Signs Date Time Temp Pulse Resp B/P Pulse Ox O2 Delivery O2 Flow Rate FiO2 04/30/16 19:29 97.7 18 04/30/16 19:10 75 04/30/16 18:50 16 04/30/16 18:45 86 04/30/16 18:45 84 124/72 04/30/16 18:11 18 04/30/16 18:11 16 04/30/16 18:10 74 04/30/16 18:10 66 120/54 04/30/16 18:05 79 04/30/16 18:00 85 04/30/16 17:55 78 04/30/16 17:50 77 04/30/16 17:45 75 04/30/16 17:40 92 04/30/16 17:35 89 04/30/16 17:30 85 04/30/16 17:25 92 04/30/16 17:20 83 04/30/16 17:15 88 04/30/16 17:15 84 04/30/16 17:15 126/77 04/30/16 17:14 98.2 04/30/16 17:10 95 04/30/16 17:05 79 04/30/16 17:00 91 04/30/16 16:55 85 04/30/16 16:50 87 04/30/16 16:45 88 04/30/16 16:40 82 04/30/16 16:35 78 04/30/16 16:30 90 04/30/16 16:25 86 04/30/16 16:20 83 04/30/16 16:15 89 04/30/16 16:11 97.9 18 04/30/16 16:10 80 04/30/16 16:10 87 133/77 04/30/16 16:05 87 04/30/16 16:00 91 04/30/16 15:55 82 04/30/16 15:45 83 04/30/16 15:40 82 04/30/16 15:35 79 04/30/16 15:30 82 04/30/16 15:25 92 04/30/16 15:20 72 04/30/16 15:15 87 04/30/16 15:14 16 04/30/16 15:12 70 123/76 04/30/16 15:10 82 04/30/16 15:05 75 04/30/16 15:00 83 04/30/16 14:55 68 04/30/16 14:50 87 04/30/16 14:45 77 04/30/16 14:40 76 04/30/16 14:35 86 04/30/16 14:30 74 04/30/16 14:25 76 04/30/16 14:20 80 04/30/16 14:15 85 04/30/16 14:12 16 04/30/16 14:11 82 117/73 04/30/16 14:10 79 04/30/16 14:05 80 04/30/16 14:00 78 04/30/16 13:55 74 04/30/16 13:50 83 04/30/16 13:45 84 04/30/16 13:40 73 04/30/16 13:35 80 04/30/16 13:30 81 04/30/16 13:25 77 04/30/16 13:20 74 04/30/16 13:15 75 04/30/16 13:15 116/67 04/30/16 13:15 76 04/30/16 13:14 16 04/30/16 13:10 75 04/30/16 13:05 75 04/30/16 13:00 73 04/30/16 12:50 81 04/30/16 12:45 16 04/30/16 12:45 85 04/30/16 12:40 73 04/30/16 12:35 70 04/30/16 12:30 84 04/30/16 12:25 79 04/30/16 12:20 79 04/30/16 12:15 16 04/30/16 12:15 82 04/30/16 12:10 76 121/69 04/30/16 12:10 75 04/30/16 12:05 80 Objective Pelvic Exam: Cervix: soft, mid Dilatation: 6cm Effacement: 80% Station: -2 Presentation: vtx Membranes: ruptured Uterine Contractions: q 2-3min FHT's: Category: 2 Baseline: 140 Reactive: y Variability: mod Decels: variables Assessment/Plan Problem List: (1) 38 weeks gestation of Assessment and Plan 40-year-old at 38 and 0/7 weeks today, EDC 05/14/16 admitted to L&D on for induction of labor due to polyhydramnios and contractions #) IUP - s/p amnitome ROM, now w/ large LOF and variable contractions - Category 2 tracing w/ variables - position changes - hold pit - check for cord prolapse - check for position change - consider amnioinfusion - continuous monitoring - consider scalp monitor - If deterioration to cat 3 tracing, cord prolapse, or breech presentation may need to proceed with c/s due to -2 position. #) GBS positive: - s/p Pen x2 - Continue pen #) Desires tubal ligation - Anticipate as outpatient procedure, consent is available in chart if indicated wdw MD Carlton Saldivar Jonathan MD R3 Apr 30, 2016 20:20
--- NOTE | 2016-04-30 20:23 | HHI.PR ---
EXCHANGE UNDERWRITING CONSULTANT Note Note CTSP for rupture of membranes, meconium was noted in "clumps" Exam Cervix / -2, breech. Sonogram was performed that agrees with breech presentation. Patient had ultrasound in [facility] diagnostics this am, baby was vertex just before induction. Will take back for . Genia Pool MD Apr 30, 2016 20:23
[2016-04-30] MEDS ORDERED: ceFAZolin INJ 1,000 MG VIAL ONE (20:26)
[2016-04-30] MEDS ORDERED: ceFAZolin 2 GM PREMIX 50 ML IV ONE (20:30)
[2016-04-30] MEDS ORDERED: LACTATED RINGER'S 1000 ML INJ 1,000 ML IV ONE (20:45)
[2016-04-30] MEDS ORDERED: PROPOFOL 200 MG/20 ML AMP IV ONE (20:45)
[2016-04-30] MEDS ORDERED: ESMOLOL HCL 100 MG/10 ML VIAL IV ONE (20:45)
[2016-04-30] MEDS ORDERED: OXYTOCIN 10 UNIT/ML AMP ONE (20:46)
[2016-04-30] MEDS ORDERED: SODIUM CHLORIDE 0.9% FLUSH 5 ML FLUSH IV FLUSH SCH (21:00)
[2016-04-30 21:15] LABS: BLOOD GAS O2 HGB SATURATION 38 % (90-100); CORD BLOOD GAS HCO3 19 mmol/L (21-29); CORD BLOOD GAS PCO2 34 mmHG (34-78); CORD BLOOD GAS PH 7.38 (7.14-7.42)
[2016-04-30 21:16] LABS: CORD BLOOD GAS PO2 19 mmHG (3.0-40.0); DRAW SITE CORD BLOOD; STAT YES
[2016-04-30] MEDS ORDERED: MORPHINE SULFATE PF 5 MG/10 ML VIAL ONE (21:16)
[2016-04-30] MEDS ORDERED: fentaNYL CITRATE 250 MCG/5 ML AMP ONE (21:16)
[2016-04-30] MEDS ORDERED: ONDANSETRON HCL 4 MG/2 ML VIAL ONE (21:16)
--- NOTE | 2016-04-30 21:18 | PD.OB.DELI ---
Procedure Note Section Procedure Pre Op Diagnosis 38 weeks gestation Polyhydramnios Breech presentation Advanced maternal age Group B strep positive Desires permanent sterilization Post Op Diagnosis: Post Op Diagnosis Same Performed by Genia Pool Procedure: Primary Low Transverse Sec, Other (bilateral midsegment salpingectomy) Indication for delivery: malposition Informed consent obtained: For anesthesia Confirmed correct: Time-out taken Anesthesia: Spinal Medication prior to procedure: As documented in eMAR Monitoring during procedure: Blood pressure monitoring, brand planner Urinary catheter: Inserted using sterile technique Sterile preparation: Duraprep Position: Supine with wedge to left side Operative Features Skin Incision: Pfannenstiel Uterine Incision: Low transverse w/knife / blunt ext Membranes Ruptured: Previously Presentation: Breech Time of : 20:43 Delivery of infant: Uneventful : Female One Minute : 9 Five Minute : 9 Weight: 6 lbs. 9 oz. 2990 g Status of infant: Viable Placenta delivered: Intact Medications: Antibiotics Estimated blood loss: 1000cc Procedure tolerated: Well Maternal Condition: Stable Condition: Stable Genia Pool MD Apr 30, 2016 21:18
[2016-04-30] MEDS ORDERED: ONDANSETRON HCL 4 MG/2 ML VIAL IV PUSH PRN (21:30)
[2016-04-30] MEDS ORDERED: oxyCODONE/ACETAMINOPHEN 5 MG/325 MG TAB PO PRN (21:30)
[2016-04-30] MEDS ORDERED: SIMETHICONE 80 MG CHEWABLE TAB PO PRN (21:30)
[2016-04-30] MEDS ORDERED: ACETAMINOPHEN 1000 MG/100 ML VIAL IV ONE ×2 (21:30→21:55)
[2016-04-30] MEDS ORDERED: SODIUM CHLORIDE 0.9% FLUSH 5 ML FLUSH IV PRN (21:30)
[2016-04-30] MEDS ORDERED: EPIDURAL-NO SYSTEMIC NARCOTICS XX PRN (23:00)
[2016-04-30] MEDS ORDERED: EPIDURAL-DIPHENHYDRAMINE HCL 50 MG CAP PO PRN (23:00)
[2016-04-30] MEDS ORDERED: EPIDURAL-DO NOT ADMINISTER ANTICOAGULANTS XX PRN (23:00)
[2016-04-30] MEDS ORDERED: EPIDURAL-DIPHENHYDRAMINE HCL 50 MG/ML VIAL IV PUSH PRN (23:00)
[2016-04-30] MEDS ORDERED: EPIDURAL-NALOXONE HCL 0.4 MG/ML AMP IV PRN (23:00)
[2016-05-01] MEDS: IBUPROFEN 600 MG TAB PO PRN ×3 (01:33→17:21)
[2016-05-01] MEDS ORDERED: LACTATED RINGER'S 1000 ML INJ 1,000 ML IV SCH (02:22)
[2016-05-01 04:00] VITALS: BP 107/58; PULSE 67; RESP 18; TEMP 97.7
[2016-05-01 06:03] LABS: AUTOMATED NEUTROPHIL # 13.7 TH/MM3 (1.8-7.7); BASOPHIL # 0.1 TH/MM3 (0-0.2); BASOPHIL % 0.3 % (0.0-2.0); EOSINOPHIL # 0.1 TH/MM3 (0-0.4); EOSINOPHIL % 0.4 % (0.0-4.0); HEMATOCRIT 22.5 % (35.0-46.0); HEMO FLAGS DIFF FINAL; LYMPH % 9.6 % (9.0-44.0); LYMPHOCYTE # 1.6 TH/MM3 (1.0-4.8); MEAN CELL VOLUME 92.7 FL (80.0-100.0); MEAN CORPUSCULAR HEMOGLOBIN 31.2 PG (27.0-34.0); MEAN CORPUSCULAR HGB CONC 33.6 % (32.0-36.0); MONO % 4.5 % (0.0-8.0); NEUT % 85.2 % (16.0-70.0); PLATELET COUNT 256 TH/MM3 (150-450); RED BLOOD COUNT 2.43 MIL/MM3 (4.00-5.30); RED CELL DISTRIBUTION WIDTH 12.9 % (11.6-17.2); WHITE BLOOD COUNT 16.1 TH/MM3 (4.0-11.0)
[2016-05-01] MEDS ORDERED: OXYTOCIN 30 UNITS-500ML PREMIX 500 ML IV PRN (07:30)
[2016-05-01 07:45] VITALS: BP 111/71; PULSE 64; RESP 18; TEMP 97.7
--- NOTE | 2016-05-01 07:59 | HHI.OB ---
Subjective Remarks 40 year old with done last night at 2042 for malposition. This morning she is resting in bed. She has some nausea that is responsive to Zofran. She vomited once this morning. She has not ambulated yet. She had tubal ligation during the procedure. She is supplementing with formula and sites congenital plugged ducts as the reason for not . Her hgb pre-op was 10.6 and post op is 7.6. White count is 16.1 from 12.6. She has no fevers. She received cefazolin pre-op. (Rigo Garrido MD R2) Objective Vitals/I&O Vital Signs Date Time Temp Pulse Resp B/P Pulse Ox O2 Delivery O2 Flow Rate FiO2 05/01/16 04:00 97.7 67 18 107/58 04/30/16 23:05 98.6 69 20 111/69 04/30/16 22:19 98.3 04/30/16 22:15 75 18 136/70 99 04/30/16 22:02 80 16 121/72 100 04/30/16 21:50 74 16 140/75 98 04/30/16 21:31 75 16 138/73 99 04/30/16 21:20 143/68 04/30/16 21:20 97.9 96 12 100 04/30/16 20:03 16 04/30/16 20:02 88 147/97 04/30/16 20:00 81 04/30/16 19:55 79 04/30/16 19:50 80 04/30/16 19:29 97.7 18 04/30/16 19:10 75 04/30/16 18:50 16 04/30/16 18:45 86 04/30/16 18:45 84 124/72 04/30/16 18:11 18 04/30/16 18:11 16 04/30/16 18:10 74 04/30/16 18:10 66 120/54 04/30/16 18:05 79 04/30/16 18:00 85 04/30/16 17:55 78 04/30/16 17:50 77 04/30/16 17:45 75 04/30/16 17:40 92 04/30/16 17:35 89 04/30/16 17:30 85 04/30/16 17:25 92 04/30/16 17:20 83 04/30/16 17:15 88 04/30/16 17:15 84 04/30/16 17:15 126/77 04/30/16 17:14 98.2 04/30/16 17:10 95 04/30/16 17:05 79 04/30/16 17:00 91 04/30/16 16:55 85 04/30/16 16:50 87 04/30/16 16:45 88 04/30/16 16:40 82 04/30/16 16:35 78 04/30/16 16:30 90 04/30/16 16:25 86 04/30/16 16:20 83 04/30/16 16:15 89 04/30/16 16:11 97.9 18 04/30/16 16:10 80 04/30/16 16:10 87 133/77 04/30/16 16:05 87 04/30/16 16:00 91 04/30/16 15:55 82 04/30/16 15:45 83 04/30/16 15:40 82 04/30/16 15:35 79 04/30/16 15:30 82 04/30/16 15:25 92 04/30/16 15:20 72 04/30/16 15:15 87 04/30/16 15:14 16 04/30/16 15:12 70 123/76 04/30/16 15:10 82 04/30/16 15:05 75 04/30/16 15:00 83 04/30/16 14:55 68 04/30/16 14:50 87 04/30/16 14:45 77 04/30/16 14:40 76 04/30/16 14:35 86 04/30/16 14:30 74 04/30/16 14:25 76 04/30/16 14:20 80 04/30/16 14:15 85 04/30/16 14:12 16 04/30/16 14:11 82 117/73 04/30/16 14:10 79 04/30/16 14:05 80 04/30/16 14:00 78 04/30/16 13:55 74 04/30/16 13:50 83 04/30/16 13:45 84 04/30/16 13:40 73 04/30/16 13:35 80 3/8/17 13:30 81 04/30/16 13:25 77 04/30/16 13:20 74 04/30/16 13:15 75 04/30/16 13:15 116/67 04/30/16 13:15 76 04/30/16 13:14 16 04/30/16 13:10 75 04/30/16 13:05 75 04/30/16 13:00 73 04/30/16 12:50 81 04/30/16 12:45 16 04/30/16 12:45 85 04/30/16 12:40 73 04/30/16 12:35 70 04/30/16 12:30 84 04/30/16 12:25 79 04/30/16 12:20 79 04/30/16 12:15 16 04/30/16 12:15 82 04/30/16 12:10 76 121/69 04/30/16 12:10 75 04/30/16 12:05 80 04/30/16 12:00 79 04/30/16 11:55 76 04/30/16 11:50 76 04/30/16 11:45 78 04/30/16 11:40 88 04/30/16 11:35 86 04/30/16 11:30 77 04/30/16 11:25 85 04/30/16 11:20 69 04/30/16 11:18 74 04/30/16 11:15 136/81 04/30/16 11:14 97.7 16 04/30/16 11:10 78 04/30/16 11:05 74 04/30/16 11:00 73 04/30/16 10:22 84 121/70 04/30/16 10:20 69 04/30/16 10:15 70 (Rigo Garrido MD R2) Result Diagram: 05/01/16 0435 Objective Remarks GENERAL: Resting in bed, no acute distress CARDIOVASCULAR: Regular rate and rhythm without murmurs, gallops, or rubs. RESPIRATORY: Breath sounds equal bilaterally. No accessory muscle use. ABDOMEN/GI: Abdomen soft, non-tender, bowel sounds present. Incision: Currently covered, no bleeding through bandage Fundus: Firm, non-tender at umbilicus. GENITOURINARY: Light to moderate bleeding. EXTREMITIES: No cyanosis or edema, non-tender, without signs of DVT. Medications and IVs Current Medications Medications (Trade) Dose Ordered Sig/Amy Route Start Time Stop Time Status Last Admin (Lr 1000 ml Inj) 1,000 ml @ 100 mls/hr Q10H IV 05/01/16 02:22 05/01/16 22:21 05/01/16 03:15 (NS Flush) 2 ml BID IV 05/01/16 09:00 (NS Flush) 2 ml UNSCH PRN IV 04/30/16 21:30 (Mylicon Chew) 80 mg QID PRN PO 04/30/16 21:30 05/01/16 01:33 (Motrin) 600 mg Q6H PRN PO 04/30/16 21:30 05/01/16 01:33 (Percocet 5-325 Mg) 1 tab Q4H PRN PO 04/30/16 21:30 (Percocet 5-325 Mg) 2 tab Q4H PRN PO 04/30/16 21:30 (M-M-R Ii Inj) 0.5 ml ONCE ONCE SQ 05/01/16 16:00 05/01/16 16:01 (Boostrix Inj) 0.5 ml ONCE ONCE IM 05/01/16 16:00 05/01/16 16:01 (Zofran Inj) 4 mg Q6H PRN IV PUSH 04/30/16 21:30 05/01/16 06:12 Miscellaneous Information NO SYSTEMIC NARCOTICS TO BE GIVEN FO... UNSCH PRN XX 04/30/16 23:00 05/01/16 22:59 (Narcan Inj) 0.4 mg UNSCH PRN IV 04/30/16 23:00 05/01/16 22:59 (Benadryl Inj) 25 mg Q6H PRN IV PUSH 04/30/16 23:00 05/01/16 22:59 (Benadryl) 50 mg Q6H PRN PO 04/30/16 23:00 05/01/16 22:59 Miscellaneous Information ALL NURSING DEPARTMENTS UNSCH PRN XX 04/30/16 23:00 05/01/16 22:59 (Rigo Garrido MD R2) Assessment/Plan Assessment and Plan 40-year-old post op day 1 after for malposition. - Percocet, ibuprofen for pain control - Encourage ambulation today - Pelvic rest advised - Had tubal ligation - Monitor incision site and lochia discussed with Dr. Pool Discharge Planning Likely 12 days after delivery (Rigo Garrido MD R2) Attestation Patient seen and I agree with management (Genia Pool MD) Rigo Garrido MD R2 May 01, 2016 07:58 Genia Pool MD May 01, 2016 09:32
[2016-05-01] MEDS ORDERED: SODIUM CHLORIDE 0.9% FLUSH 5 ML FLUSH IV SCH (09:00)
[2016-05-01] MEDS: oxyCODONE/ACETAMINOPHEN 5 MG/325 MG TAB PO PRN ×2 (11:02→21:22)
[2016-05-01 14:00] VITALS: BP 119/80; PULSE 71; RESP 18; TEMP 98.3
[2016-05-01 14:32] LABS: HEMATOCRIT 23.9 % (35.0-46.0); REVIEW FLAG FINAL
[2016-05-01] MEDS ORDERED: MEASLES, MUMPS, RUBELLA VACCINE 0.5 ML VIAL SQ ONE (16:00)
[2016-05-01] MEDS ORDERED: DIPHTH/TETANUS/ACEL PERTUSSIS (BOOSTER) 0.5 ML VIAL/PFS IM ONE (16:00)
[2016-05-01 20:30] VITALS: BP 135/67; PULSE 77; RESP 17; TEMP 98.3
[2016-05-02] MEDS: IBUPROFEN 600 MG TAB PO PRN ×2 (02:10→08:00)
[2016-05-02] MEDS: oxyCODONE/ACETAMINOPHEN 5 MG/325 MG TAB PO PRN ×3 (02:10→13:19)
[2016-05-02] MEDS ORDERED: OXYC1TAB63 PO (07:27)
[2016-05-02] MEDS ORDERED: IBUP-232 PO (07:27)
[2016-05-02] MEDS ORDERED: SIME80CH PO (07:27)
--- NOTE | 2016-05-02 07:28 | HHI.DCPOC ---
Discharge Care Plan Diagnosis: (1) delivery delivered Goals to Promote Your Health * To prevent worsening of your condition and complications * To maintain your health at the optimal level Directions to Meet Your Goals Take your medications as prescribed Follow your dietary instruction Follow activity as directed Keep your appointments as scheduled Take your immunizations and boosters as scheduled If your symptoms worsen call your PCP, if no PCP go to Urgent Care Center or Emergency Room Smoking is Dangerous to Your Health. Avoid second hand smoke Call the 24-hour hour crisis hotline for domestic abuse at Rigo Garrido MD R2 May 02, 2016 07:28
[2016-05-02 08:00] VITALS: BP 107/69; PULSE 71; RESP 18; TEMP 97.9
--- NOTE | 2016-05-02 08:04 | HHI.OB ---
Subjective Post Operative Day: 2 Remarks Postoperative day # 2. AFVSS overnight. Incision not draining. Decreased lochia. Denies dysuria. No breast tenderness. She is feeding the baby via breast. Appetite good. No nausea or vomiting. She asks about continuing her outpatient Clinda for her left foot cellulitis. She has not had BM, requests Miralax. Ambulating well. Denies calf pain or shortness of breath. Objective Vitals/I&O Vital Signs Date Time Temp Pulse Resp B/P Pulse Ox O2 Delivery O2 Flow Rate FiO2 05/01/16 20:30 98.3 77 17 05/01/16 20:30 135/67 05/01/16 14:00 98.3 71 18 119/80 Result Diagram: 05/01/16 1425 Objective Remarks GENERAL: Resting in bed, no acute distress CARDIOVASCULAR: Regular rate and rhythm without murmurs, gallops, or rubs. RESPIRATORY: Breath sounds equal bilaterally. No accessory muscle use. ABDOMEN/GI: Abdomen soft, non-tender, bowel sounds present. Incision: Clean dry intact, with steristrips in place Fundus: Firm, non-tender at umbilicus. GENITOURINARY: Light to moderate bleeding. EXTREMITIES: No cyanosis or edema, non-tender, without signs of DVT. Medications and IVs Current Medications Medications (Trade) Dose Ordered Sig/Amy Route Start Time Stop Time Status Last Admin (NS Flush) 2 ml UNSCH PRN IV 04/30/16 21:30 (Mylicon Chew) 80 mg QID PRN PO 04/30/16 21:30 05/01/16 01:33 (Motrin) 600 mg Q6H PRN PO 04/30/16 21:30 05/02/16 02:10 (Percocet 5-325 Mg) 1 tab Q4H PRN PO 04/30/16 21:30 05/01/16 17:21 (Percocet 5-325 Mg) 2 tab Q4H PRN PO 04/30/16 21:30 05/02/16 02:10 Assessment/Plan Problem List: (1) 38 weeks gestation of Assessment and Plan 40-year-old post op day 2 after for malposition. - Percocet, ibuprofen for pain control - Encourage ambulation today - Pelvic rest advised for 6 wks. - Had tubal ligation - Monitor incision site and lochia -Continue routine care. - Will need a f/u appt. in 1 wk for incision check -Anticipate discharge today or tomorrow MARK Velarde Discharge Planning Likely today or tomorrow Laura Pascual MD R1 May 02, 2016 08:04
[2016-05-02] MEDS ORDERED: POLYETHYLENE GLYCOL 17 GM PKG PO ONE (09:00)
[2016-05-02] MEDS ORDERED: CLINDAMYCIN 150 MG CAP PO SCH (09:00)
[2016-05-02] MEDS ORDERED: DOCUSATE SODIUM 50 MG/SENNA 8.6 MG TAB PO ONE (09:00)
[2016-05-02] MEDS ORDERED: PERI8.6T PO (09:17)
--- NOTE | 2016-05-03 19:44 | MP ---
cc: MIRIAM GALVEZ MD Corrected: 05/06/2016 DATE OF SURGERY 04/30/16 PREOPERATIVE DIAGNOSIS 1. 38 weeks gestation. 2. Polyhydramnios. 3. Breech presentation. 4. Advanced maternal age. 5. Group B strep positive. 6. Desires permanent sterilization POSTOPERATIVE DIAGNOSIS 1. 38 weeks gestation. 2. Polyhydramnios. 3. Breech presentation. 4. Advanced maternal age. 5. Group B strep positive. 6. Desires permanent sterilization PROCEDURE 1. Primary low transverse section without extension. 2. Bilateral mid segment salpingectomy ESTIMATED BLOOD LOSS 1000 mL. DRAINS Purcell to gravity MEDICATIONS Ancef 2 grams was given during the procedure. Anesthesia was a spinal. COUNTS Correct x3. COMPLICATIONS No complications PATHOLOGY Bilateral tubal segments. FINDINGS 1. Normal uterus, tubes and ovaries. 2. Clear amniotic fluid. 3. Infant in a breech presentation without Apgars nine and nine baby was 6 pounds 9 ounces, 2990 grams, female . The patient was taken back to recovery room in good condition. PROCEDURE IN DETAIL The patient underwent induction. She had had an ultrasound this morning that confirmed vertex presentation. A micro amniotomy was performed as she had polyhydramnios when she went into active labor. Around 5 cm a gush of meconium was noted and the patient was noted to be breech presentation. She was taken back for section. After adequate anesthesia, she has put into the dorsal lithotomy position with a wedge to her left side. Pfannenstiel incision was made in the skin, taken down the fascia. Fascia was nicked in the midline and extended bilaterally and taken down to the tectus muscles. Muscles were divided in the midline, anterior peritoneum was entered. vesicouterine peritoneum was taken down and a transverse hysterotomy incision was made, bluntly extended bilaterally. The infant is breech, was delivered to the operative field. The legs were flexed at the knees and delivered and using a counterclockwise and clockwise traction, the upper extremities were delivered. The head was flexed and then delivered to the operative field, handed off to the resuscitation team for subsequent care. Doubly clamped cord segment was taken for cord blood analysis and arterial blood gas. Placenta was delivered intact spontaneously and endometrial cavity was curetted with a moist laparotomy sponge. The Alex wound protector was used during the case. Endometrial cavity was curetted with moist laparotomy sponge and the hysterotomy incision was repaired using running locking #1 chromic suture. Good hemostasis at closure. The patient had two large bleeders at the incision that were clamped off before being made hemostatic with the running locking suture. Attention was then directed to the tubes. A window was made in the mesosalpinx of the left fallopian tube and two #1 chromic sutures were passed and the intervening 2 cm segment was removed. The right tube was approached in a similar manner. Gutters were rendered free of all bone and clot material. The rectus muscles were plicated gently together in the midline using 2-0 chromic, fascia closed using a #1 PDS and a subcuticular 3-0 Monocryl suture was placed into the skin. The patient tolerated the procedure well. She was taken back to recovery room in good condition. MD WESTLEY Hernandez/ /9:21 PM /7:24 PM MTDD
[2016-05-06] MEDS ORDERED: FERRTAB2 PO (10:38)
[2016-05-13] MEDS ORDERED: IBUP800T23 PO (11:01)
== END 2016-05-02 15:05 | disposition home or self-care (01) | DRG 765 ==
LOC: HOBED 07:38 → H2EB 09:00 → H1EA 22:36
PROVIDERS: ADMIT Obstetrics & Gynecology Maternal & Fetal Medicine; ATTEND Obstetrics & Gynecology Maternal & Fetal Medicine
PROC: 10D00Z1 Extraction of Products of Conception, Low, Open Approach (ICD-10-PCS; principal; 2016-04-30)
PROC: 0UL70ZZ Occlusion of Bilateral Fallopian Tubes, Open Approach (ICD-10-PCS; 2016-04-30)
DX: O32.1XX0 Maternal care for breech presentation, not applicable or unspecified (principal); O40.3XX0 Polyhydramnios, third trimester, not applicable or unspecified; Z37.0 Single live birth; O99.334 Smoking (tobacco) complicating childbirth; Z3A.49 Greater than 42 weeks gestation of pregnancy; O99.824 Streptococcus B carrier state complicating childbirth; N84.0 Polyp of corpus uteri; Z30.2 Encounter for sterilization
CPT/HCPCS: 76816; 76819; 81001; 82805; 85014; 85018; 85025; 86900; 86901; 88302; 99284; J0131; J0690; J2274; J2405; J2540; J2590; J3010; J3105; J7120

== ENCOUNTER 2016-06-10 10:21 | Emergency (ER) | payer OTHER ==
[~2016-06-10] VITALS: Ht 185.4 cm; Wt 73.0 kg
[~2016-06-10 10:21] MED LIST changes: -ACET-703 PO; -CLEO300C2 PO; +FERRTAB2 PO; +IBUP-232 PO; +IBUP800T23 PO; -PREN1CAP20
[2016-06-10 10:23] VITALS: BP 154/64; PULSE 90; RESP 12; TEMP 98; O2SAT 100
[2016-06-10 10:51] VITALS: BP 111/78; PULSE 79; RESP 18; O2SAT 100
--- NOTE | 2016-06-10 11:18 | PD ---
HPI Chief Complaint: Related Problem Time Seen by Provider: 10:57 Travel History International Travel<30 days: No Contact w/Intl Traveler<30days: No Traveled to known affect area: No History of Present Illness HPI This is a 40-year-old female who is 6 weeks post who presents to the emergency department with vaginal bleeding, heavy, constant, changing a pad every hour and a half or so, feeling like clots and blood or just pouring out of her. This bleeding started 2 days ago. She's had some lower abdominal cramping. She denies any fevers or chills. She had an emergency and had been doing well up until now. PFSH Past Medical History Autoimmune Disease: Yes (LYME DISEASE) Diminished Hearing: No Migraines: Yes Tetanus Vaccination: > 5 Years Influenza Vaccination: No ?: Not : 7 Para: 4 Miscarriage: 3 Past Surgical History Section: Yes (APRIL 2016) Oral Surgery: Yes (WISDOM TEETH REMOVAL) Social History Alcohol Use: No Tobacco Use: Yes (4-5 cig per day) Substance Use: No Allergies-Medications (Allergen,Severity, Reaction): Coded Allergies: No Known Allergies (Unverified , 06/10/16) Reported Meds & Prescriptions Reported Meds & Active Scripts Active Ibuprofen 800 Mg Tab 800 Mg PO Q6HR PRN Ferralet (Multi-Vit/Iron-Folic [id number] C) 90-1-0.012-120 mg Tab 1 Tab PO DAILY Ibuprofen 600 Mg Tab 600 Mg PO Q6H PRN Review of Systems Except as stated in HPI: all other systems reviewed are Neg Physical Exam Narrative GENERAL:Well appearing, no acute distress SKIN: Focused skin assessment warm and dry. HEAD: Atraumatic. Normocephalic. EYES: Pupils equal and round. No injection or drainage. ENT: Moist mucous membranes NECK: Trachea midline. CARDIOVASCULAR: Regular rate and rhythm. No murmur appreciated. RESPIRATORY: Clear to auscultation. Breath sounds equal bilaterally. GASTROINTESTINAL: Abdomen soft, non-tender, nondistended. 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 NEUROLOGICAL: Awake and alert. No obvious cranial nerve deficits. Moving all extremities. PSYCHIATRIC: Appropriate mood and affect; insight and judgment normal. Data Data Last Documented VS Vital Signs Date Time Temp Pulse Resp B/P Pulse Ox O2 Delivery O2 Flow Rate FiO2 06/10/16 15:22 86 18 117/75 99 Room Air 06/10/16 10:23 98.0 Orders Complete Blood Count With Diff (06/10/16 11:09) Basic Metabolic Panel (Bmp) (06/10/16 11:09) ^ Insert Iv (06/10/16 11:09) Prothrombin Time / Inr (Pt) (06/10/16 11:09) Act Partial Throm Time (Ptt) (06/10/16 11:09) Us Pelvis Comp W Transvaginal (06/10/16 ) Type And Screen (06/10/16 11:09) Ketorolac Inj (Toradol Inj) (06/10/16 11:45) Sodium Chlor 0.9% 1000 Ml Inj (Ns 1000 M (06/10/16 14:15) Morphine Inj (Morphine Inj) (06/10/16 14:15) Ondansetron Inj (Zofran Inj) (06/10/16 14:37) Labs Laboratory Tests Test 06/10/16 11:13 White Blood Count 8.3 TH/MM3 Red Blood Count 3.67 MIL/MM3 Hemoglobin 10.4 GM/DL Hematocrit 31.6 % Mean Corpuscular Volume 86.3 FL Mean Corpuscular Hemoglobin 28.3 PG Mean Corpuscular Hemoglobin 32.8 % Concent Red Cell Distribution Width 15.3 % Platelet Count 372 TH/MM3 Mean Platelet Volume 8.2 FL Neutrophils (%) (Auto) 65.1 % Lymphocytes (%) (Auto) 25.0 % Monocytes (%) (Auto) 5.1 % Eosinophils (%) (Auto) 4.3 % Basophils (%) (Auto) 0.5 % Neutrophils # (Auto) 5.4 TH/MM3 Lymphocytes # (Auto) 2.1 TH/MM3 Monocytes # (Auto) 0.4 TH/MM3 Eosinophils # (Auto) 0.4 TH/MM3 Basophils # (Auto) 0.0 TH/MM3 CBC Comment DIFF FINAL Differential Comment Prothrombin Time 10.8 SEC Prothromb Time International 1.0 RATIO Ratio Activated Partial 28.8 SEC Thromboplast Time Sodium Level 140 MEQ/L Potassium Level 3.7 MEQ/L Chloride Level 106 MEQ/L Carbon Dioxide Level 27.0 MEQ/L Anion Gap 7 MEQ/L Blood Urea Nitrogen 11 MG/DL Creatinine 0.80 MG/DL Estimat Glomerular Filtration 79 ML/MIN Rate Random Glucose 91 MG/DL Calcium Level 8.4 MG/DL Blood Type A POSITIVE Antibody Screen NEGATIVE MDM Medical Decision Making Medical Screen Exam Complete: Yes Emergency Medical Condition: Yes Interpretation(s) Afebrile, no tachycardia, hypertensive Anemia improved from discharge Electrolytes are reassuring Differential Diagnosis Retained products, anemia, menstrual cycle Narrative Course This is a 40-year-old female who presents to the emergency department with heavy vaginal bleeding, bleeding a pad an hour 6 weeks . She was placed on a monitor and an IV was established. Labs are obtained which demonstrates some anemia but it's improved since 6 weeks ago. She does have a fair amount of blood coming from the os which was all dark. A pelvic ultrasound was obtained which demonstrated no retained products. I spoke to the roving inspector on-call who did offer that the patient could do of control taper to slow her bleeding. The patient declined given that she smokes and she would be at higher risk for blood clots. Patient will be discharged on anti-inflammatories. The bleeding likely reflects her first menstrual cycle. Diagnosis Primary Impression: Irregular menstrual cycle Patient Instructions: General Instructions Additional Instructions: Heavy bleeding can be caused by many things including: - One of your ovaries not releasing an egg during one or more months - Growths in the uterus called fibroids - A bleeding disorder that prevents your blood from clotting normally - Side effects of some medicines, such as some types of control or blood thinners - A problem with your thyroid (a gland that makes hormones) Return to the emergency department if you: Need to use both tampons and pads at the same time because you are bleeding so much Need to change your pad or tampon during the night Or are feeling lightheaded, weak, dizzy, have chest pain, shortness of breath or are having difficulty exerting yourself Follow up with [facility] at: [facility] [address] [place] [address] Office Hours Thursday 9:00 am 5:30 pm Thursday 8:00 am 12:00 pm Tuesdays 4:00 6:30 pm Med/Other Pt SpecificInfo: Prescription(s) given Scripts Naproxen 500 Mg [id number] Mg PO BID PRN (PAIN SCALE 4 TO 10) #20 TAB Prov:Macie Skinner MD 06/10/16 Disposition: 01 DISCHARGE HOME Condition: Stable Macie Skinner MD Jun 10, 2016 11:18
[2016-06-10 11:32] LABS: AUTOMATED NEUTROPHIL # 5.4 TH/MM3 (1.8-7.7); BASOPHIL % 0.5 % (0.0-2.0); EOSINOPHIL # 0.4 TH/MM3 (0-0.4); EOSINOPHIL % 4.3 % (0.0-4.0); HEMATOCRIT 31.6 % (35.0-46.0); HEMO FLAGS DIFF FINAL; LYMPHOCYTE # 2.1 TH/MM3 (1.0-4.8); MEAN CELL VOLUME 86.3 FL (80.0-100.0); MEAN CORPUSCULAR HEMOGLOBIN 28.3 PG (27.0-34.0); MEAN CORPUSCULAR HGB CONC 32.8 % (32.0-36.0); MONO % 5.1 % (0.0-8.0); NEUT % 65.1 % (16.0-70.0); PLATELET COUNT 372 TH/MM3 (150-450); RED BLOOD COUNT 3.67 MIL/MM3 (4.00-5.30); RED CELL DISTRIBUTION WIDTH 15.3 % (11.6-17.2); WHITE BLOOD COUNT 8.3 TH/MM3 (4.0-11.0)
[2016-06-10] MEDS ORDERED: KETOROLAC TROMETHAMINE 30 MG/ML (IVP) VIAL IV PUSH ONE (11:45)
[2016-06-10 11:46] LABS: APTT (PATIENT) 28.8 SEC (24.3-30.1); PROTHROMBIN TIME - PATIENT 10.8 SEC (9.8-11.6)
[2016-06-10 11:53] LABS: POTASSIUM 3.7 MEQ/L (3.5-5.1)
[2016-06-10] MEDS ORDERED: MORPHINE SULFATE 4 MG/ML INJ IV PUSH ONE (14:15)
[2016-06-10] MEDS ORDERED: SODIUM CHLOR 0.9% 1000 ML INJ 1,000 ML IV SCH (14:15)
[2016-06-10] MEDS ORDERED: ONDANSETRON HCL 4 MG/2 ML VIAL ONE (14:37)
[2016-06-10 15:22] VITALS: BP 117/75; PULSE 86; RESP 18; O2SAT 99
--- NOTE | 2016-06-10 15:36 | RADRPT ---
EXAM DATE/TIME: 06/10/2016 14:02 [facility] COMPARISON: No previous studies available for comparison. INDICATIONS : Patient will be six weeks post tomorrow and has vaginal bleeding that got worse two days ago. section and tubal ligation six weeks ago tomorrow. MEDICAL HISTORY : Vaginal bleeding. SURGICAL HISTORY : Tubal ligation. section. ENCOUNTER: Initial ACUITY: 2 days PAIN SCORE: 5/10 LOCATION: Bilateral pelvis MEASUREMENTS: UTERUS: 10.4 x 7.5 x 4.9 cm ENDOMETRIAL STRIPE: 6 mm RIGHT OVARY: Not visualized. LEFT OVARY: 4.5 x 3.4 x 2.5 cm FINDINGS: The endometrium is normal in thickness and measures 6 mm in greatest width. There is a miniscule 3 mm cystic area within the fundus in the upper endometrial cavity. No significant endometrial fluid yang ection is noted. The right ovary is nonvisualized. There is a 2.7 x 1.8 x 1.4 cm left ovarian cyst. N o free fluid is noted within the cul-de-sac. CONCLUSION: Miniscule 3 mm cystic area within the upper endometrial cavity in the fundus which is nonspecific. No significant endometrial thickening or fluid collection is noted. Left ovarian cyst measuring 2.7 cm. Nonvisualization of the right ovary. Serafin Soares MD on June 10, 2016 at 15:29 Board Certified Radiologist. This report was verified electronically.
[2016-06-10] MEDS ORDERED: NAPR500T PO (15:48)
[2016-06-10] MEDS ORDERED: ONDANSETRON HCL 4 MG/2 ML VIAL IV ONE (16:00)
== END 2016-06-10 16:15 | disposition home or self-care (01) ==
LOC: NEPD 10:21
DX: N92.6 Irregular menstruation, unspecified (principal)
CPT/HCPCS: 76830; 76856; 80048; 85025; 85610; 85730; 86850; 86900; 86901; 96374; 96375; 99284; J1885; J2270; J2405; J7030